=== PATIENT | female | born 1970 | race Caucasian/White ===

== ENCOUNTER 2017-09-18 14:26 | Inpatient (IN) | payer OTHER ==
--- NOTE | 2017-09-18 14:33 | PDOC ---
Rapid Medical Evaluation Chief Complaint: Facial Droop Time Seen by Provider: 09/18/17 14:31 Medical Evaluation: Allergies Allergy/AdvReac Type Severity Reaction Status Date / Time No Known Allergies Allergy Verified 09/18/17 14:31 09/18/17 14:34 46 year old female with no PMH, no meds ambulatory to the ED with her daughter complaining of right-sided facial paralysis, right tongue "heaviness", and right arm numbness since 10am. Alert & oriented Responsive Normal visual bridges by confrontation Complete right facial hemiparesis, including eyebrow Normal motor strength in arms and legs No limb ataxia Decreased sensation right side of face and arm. No dysarthria No extinction/inattention NIHSS 4 Code Johnson Activated 14:35 Patient accompanied to [facility] 14:37
[2017-09-18 14:45] VITALS: BMI 33.6
[2017-09-18] MEDS ORDERED: SODIUM CHLORIDE 1,000 ML IV SCH (14:45)
--- NOTE | 2017-09-18 14:53 | PDOC ---
Attending Attestation - HPI HPI: 09/18/17 16:45 Pt is a 46 yo F with no PMHx who presents to the ED with R sided facial droop and R sided weakness. Patient's last known well at 10 PM last night. Patient reports pain in the back of her head and neck radiating to the right ear. Accompanied by daughter who presents to the ED for further evaluation. Patient denies any recent infections. PCP: None Code Banks Activated 14:35 Patient accompanied to [facility] 14:37 Neurology-- Dr. Flores contacted at 15:03 - Physicial Exam PE: 09/18/17 16:45 GENERAL: Awake, alert, and fully oriented, in no acute distress HEAD: No signs of trauma EYES: PERRLA, EOMI, sclera anicteric, conjunctiva clear ENT: Auricles normal inspection, hearing grossly normal, nares patent, oropharynx clear without exudates. Moist mucosa NECK: Normal ROM, supple, no lymphadenopathy, JVD, or masses LUNGS: Breath sounds equal, clear to auscultation bilaterally. No wheezes, and no crackles HEART: Regular rate and rhythm, normal S1 and S2, no murmurs, rubs or gallops ABDOMEN: Soft, nontender, normoactive bowel sounds. No guarding, no rebound. No masses EXTREMITIES: Normal range of motion, no edema. No clubbing or cyanosis. No cords, erythema, or tenderness NEUROLOGICAL: Cranial nerves II through XII grossly intact. Normal speech, normal gait. + L facial droop. +Decrease sensation to the right face arm and leg. SKIN: Warm, Dry, normal turgor, no rashes or lesions noted. - Critical Care Time Total Critical Care Time: 30 Critical Care Statement: The care of this patient involved high complexity decision making to prevent further life threatening deterioration of the patient 's condition and/or to evaluate & treat vital organ system(s) failure or risk of failure. - Medical Decision Making 09/18/17 16:45 Documentation prepared by Maura Stack, acting as medical videographer for Zamzam Lange DO <Maura Stack - Last Filed: 09/18/17 16:49> - Resident Resident Name: Rodney Ramirez - ED Attending Attestation I have performed the following: I have examined & evaluated the patient, The case was reviewed & discussed with the resident, I agree w/resident's findings & plan, Exceptions are as noted - Critical Care Time Total Critical Care Time: 30 Critical Care Statement: The care of this patient involved high complexity decision making to prevent further life threatening deterioration of the patient 's condition and/or to evaluate & treat vital organ system(s) failure or risk of failure. - Medical Decision Making 09/18/17 14:52 I, Dr. Zamzam Lange, DO, attest that this document has been prepared under my direction and personally reviewed by me in its entirety. I further attest, that it accurately reflects all work, treatment, procedures and medical decision -making performed by me. 09/18/17 16:51 a/p: 46yo called code banks from triage secondary to L facial droop -onset 10am -last seen normal 10a -arrived in ED at 3p, out of window for TPA -also with bells palsy -will obtain labs -discussed neuro findings with dr. flores who will see patient in consult recommends head ct will give valtrex and prednisone will keep in obs 09/18/17 17:17 pt with bells palsy but abnl neuro exam will keep in obs pending MRI microblog sent to IM <Zamzam Lange - Last Filed: 09/18/17 17:17>
[2017-09-18] MEDS ORDERED: predniSONE 20 MG TABLET (UD) PO ONE (15:10)
[2017-09-18] MEDS ORDERED: valACYclovir HCL 1000 MG TABLET PO ONE (15:10)
--- NOTE | 2017-09-18 15:17 | PDOC ---
History of Present Illness - General Chief Complaint: Facial Droop Stated Complaint: PAIN IN RIGHT OF FACE Time Seen by Provider: 09/18/17 14:31 History Source: Patient Exam Limitations: No Limitations - History of Present Illness Initial Comments: 09/18/17 15:08 Patient is a 46F with no significant medical history here today complaining right sided facial weakness starting at 10am. Patient reports some pain in the back of her head radiating to the right ear. She denies chest pain, shortness of breath, abdominal pain, nausea, vomiting, dizziness. She states that she's been able to walk normally. She is also complaining of decreased sensation on the right side, worse in the lower extremities. This started with the facial weakness. Meds: None PMH: None PSH: . All: NKDA SHx: Denies smoking alcohol and illicits Past History - Past Medical History Allergies/Adverse Reactions: Allergies Allergy/AdvReac Type Severity Reaction Status Date / Time No Known Allergies Allergy Verified 09/18/17 14:31 Home Medications: Ambulatory Orders NK [No Known Home Medication] 09/18/17 COPD: No Other medical history: denies. - Suicide/Smoking/Psychosocial Hx Smoking History: Never smoked Review of Systems - Review of Systems Comments:: 09/18/17 15:23 GENERAL/CONSTITUTIONAL: No fever or chills. HEAD, EYES, EARS, NOSE AND THROAT: No change in vision. Pain in right ear CARDIOVASCULAR: No chest pain or shortness of breath RESPIRATORY: No cough, wheezing, or hemoptysis. GASTROINTESTINAL: No nausea, vomiting, diarrhea or constipation. GENITOURINARY: No dysuria, frequency, or change in urination. MUSCULOSKELETAL: Positive for neck pain. Negative for back pain. SKIN: No rash NEUROLOGIC: Positive for headache. No loss of consciousness. Decreased sensation in right side. ENDOCRINE: No increased thirst. No abnormal weight change HEMATOLOGIC/LYMPHATIC: No anemia, easy bleeding, or history of blood clots. ALLERGIC/IMMUNOLOGIC: No hives or skin allergy. *Physical Exam - Vital Signs Last Vital Signs Temp Pulse Resp BP Pulse Ox 97.9 F 83 19 130/85 97 09/18/17 14:32 09/18/17 14:32 09/18/17 14:32 09/18/17 14:32 09/18/17 14:32 - Physical Exam Comments: 09/18/17 15:24 GENERAL: Awake, alert, and fully oriented, in no acute distress NEUROLOGICAL: Right sided facial droop with involvement of forehead and eyebrow. Normal speech, decreased sensation in right extremities, lower more than upper. HEAD: No signs of trauma, normocephalic, atraumatic EYES: PERRLA, EOMI, sclera anicteric, conjunctiva clear ENT: Auricles normal inspection, hearing grossly normal, nares patent, oropharynx clear without exudates. Moist mucosa LUNGS: No distress, speaks full sentences, clear to auscultation bilaterally HEART: Regular rate and rhythm, normal S1 and S2, no murmurs, rubs or gallops, peripheral pulses normal and equal bilaterally. ABDOMEN: Soft, nontender, normoactive bowel sounds. No guarding, no rebound. No masses EXTREMITIES: Normal inspection, Normal range of motion, no edema. No clubbing or cyanosis. SKIN: Warm, Dry, normal turgor, no rashes or lesions noted. NIH Stroke Scale - Initial Evaluation Level of consciousness: Alert Ask patient the month and their age: Answers both correctly Ask patient to open & close eyes; make fist and let go: Obeys both correctly Best gaze (horizontal eye movement): Normal Visual field testing: No visual field loss Facial paresis (Show teeth/raise eyebrows/close eyes tight): Complete paralysis of one or both sides (Upper and lower face) Motor Function: Left Arm: Normal Motor Function: Right Arm: Normal (extends arm 90 (or 45) degrees for 10 seconds without drift Motor Function: Left Leg: Normal (extends leg 30 degrees for 5 seconds without drift) Motor Function: Right Leg: Normal (extends leg 30 degrees for 5 seconds without drift) Limb Ataxia: No ataxia Sensory(Use pinprick test arms,legs,trunk,face/side to side): Severe to total sensory loss Best language (Describe picture, name items, read sentences): Mild to moderate aphasia Dysarthria (read several words): Normal articulation Extinction and Inattention: No abnormality - Total Score NIH Stroke Scale Score: 6 Critical Care Time/MDM Note - Medical Decision Making Note: 09/18/17 15:26 46F with no pmh here today with right sided facial droop. Vital signs stable. Outside of time window for tPA. Exam also not consistent with typical stroke. 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 However, patient has normal motor strength in all four extremities. Due to this , patient is not a candidate for endovascular approach. Neuro consulted, rec MRI for further evaluation in addition to labs, ekg, cxr. Patient went from RME to CT during initial evaluation. CT shows no hemorrhage, no evidence of acute stroke. Labs drawn and sent. 09/18/17 17:40 Laboratory Tests 09/18/17 09/18/17 09/18/17 15:33 15:33 15:33 WBC 6.8 Hgb 15.7 H Hct 46.5 H Plt Count 209 INR 0.95 Sodium 135 L BUN 14 Creatinine 0.4 L Random Glucose 325 H* Triglycerides 468 H Cholesterol 302 H Total LDL Cholesterol 202 H CBC normal. CMP shows elevated glucose to 325. Kidney function normal. Labs show HLD. EKG shows normal sinus rhythm, normal rate, no st elevations/depressions. Normal QTc/IL intervals. CXR pending. Patient remains stable, will admit to obs for MRI and further observation. 09/18/17 18:[address] Mehta, patient will be admitted to obs stroke floor. Discharge Disposition - Diagnosis TIA (transient ischemic attack) - Discharge Dispostion Condition at time of disposition: Stable Admit: Yes - Referrals - Patient Instructions - Post Discharge Activity
[2017-09-18] MEDS ORDERED: METOCLOPRAMIDE HCL INJECTION 10 MG/2 ML VIAL IVPUSH ONE (15:18)
[2017-09-18] MEDS ORDERED: diphenhydrAMINE HCL 25 MG CAPSULE (FP) PO ONE ×2 (15:18→15:34)
[2017-09-18] MEDS ORDERED: predniSONE 20 MG TABLET (UD) ONE (15:33)
[2017-09-18] MEDS ORDERED: METOCLOPRAMIDE HCL INJECTION 10 MG/2 ML VIAL ONE (15:33)
[2017-09-18 15:54] LABS: URINE APPEARANCE CLEAR; URINE BILIRUBIN NEGATIVE (NEGATIVE); URINE BLOOD 3+ (NEGATIVE); URINE COLOR YELLOW; URINE GLUCOSE (UA) NEGATIVE (NEGATIVE); URINE KETONE TRACE (NEGATIVE); URINE LEUK ESTERASE NEGATIVE (NEGATIVE); URINE NITRITE NEGATIVE (NEGATIVE); URINE PROTEIN NEGATIVE (NEGATIVE); URINE UROBILINOGEN NEGATIVE mg/dL (0.2-1.0)
[2017-09-18 15:56] LABS: BASO % 0.2 % (0-2.0); EOS % 2.3 % (0-4.5); MCH 27.5 pg (25.7-33.7); MCHC 33.8 g/dl (32.0-36.0); MEAN CELL VOLUME 81.4 fl (80-96); MEAN PLT VOLUME 9.7 fl (7.5-11.1); NEUT % 68.1 % (42.8-82.8); PLATELET COUNT 209 K/MM3 (134-434); RDW 12.9 % (11.6-15.6); WHITE BLOOD COUNT 6.8 K/mm3 (4.0-10.0)
[2017-09-18 16:12] LABS: INR 0.95 (0.82-1.09); PROTHROMBIN TIME (PATIENT) 10.7 SEC (9.98-11.88)
[2017-09-18 16:21] LABS: ALBUMIN 3.6 g/dl (3.4-5.0); ANION GAP 9 (8-16); BILIRUBIN,TOTAL 0.4 mg/dL (0.2-1.0); CALCIUM 8.2 mg/dL (8.5-10.1); CHOLESTEROL 302 mg/dL (50-200); CO2 26 mmol/L (21-32); CREATININE 0.4 mg/dL (0.55-1.02); SGOT/AST 15 U/L (15-37); SGPT/ALT 23 U/L (12-78); TOT PROT 7.7 g/dl (6.4-8.2)
[2017-09-18 16:22] LABS: ALK PHOS 167 U/L (45-117); CPK 65 IU/L (26-192); TROPONIN I < 0.02 ng/ml (0.00-0.05)
[2017-09-18 17:03] LABS: GLUCOSE,RANDOM 325 mg/dL (74-106)
[2017-09-18 17:56] LABS: URINE BACTERIA RARE /hpf (NONE SEEN); URINE MUCUS RARE; URINE RBC 6 /hpf (0-3); URINE WBC 1 /hpf (3-5)
[2017-09-18] MEDS: SODIUM CHLORIDE 1,000 ML IV SCH (19:15)
--- NOTE | 2017-09-18 20:20 | PN ---
Teaching Attending Note Name of Resident: Bleu Reeder ATTENDING PHYSICIAN STATEMENT I saw and evaluated the patient. I reviewed the resident's note and discussed the case with the resident. I agree with the resident's findings and plan as documented. SUBJECTIVE: 46 yo F with no pmhx who presents with right sided facial weakness. Weakness started at 10 am. Also with associated pain in back of head. States she also has loss of sensation in lower extremities. States she had a URI over a week ago , which has now resolved. No chest pain, pressure or shortness of breath. No n/v /d. States she also feels weak with her right extremities too. OBJECTIVE: Physical: VS: Vital Signs Period Temp Pulse Resp BP Sys/Ochoa Pulse Ox Last 24 Hr 97.9 F 77-83 18-19 118-130/70-85 97-100 GEN: NAD, resting in bed, able to speak full sentences, AA0X3 HEENT: NCAT, PERRL, Throat without erythema or exudates CARD: RRR S1, S2 RESP: CTAB ABD: BSx4, NTD to palpation EXT: - C/C/E CBCD WBC 6.8 K/mm3 (4.0-10.0) 09/18/17 15:33 RBC 5.71 M/mm3 (3.60-5.2) H 09/18/17 15:33 Hgb 15.7 GM/dL (10.7-15.3) H 09/18/17 15:33 Hct 46.5 % (32.4-45.2) H 09/18/17 15:33 MCV 81.4 fl (80-96) 09/18/17 15:33 MCHC 33.8 g/dl (32.0-36.0) 09/18/17 15:33 RDW 12.9 % (11.6-15.6) 09/18/17 15:33 Plt Count 209 K/MM3 (134-434) 09/18/17 15:33 MPV 9.7 fl (7.5-11.1) 09/18/17 15:33 CMP Sodium 135 mmol/L (136-145) L 09/18/17 15:33 Potassium 4.0 mmol/L (3.5-5.1) 09/18/17 15:33 Chloride 100 mmol/L (98-107) 09/18/17 15:33 Carbon Dioxide 26 mmol/L (21-32) 09/18/17 15:33 Anion Gap 9 (8-16) 09/18/17 15:33 BUN 14 mg/dL (7-18) 09/18/17 15:33 Creatinine 0.4 mg/dL (0.55-1.02) L 09/18/17 15:33 Creat Clearance w eGFR > 60 (>60) 09/18/17 15:33 Random Glucose 325 mg/dL (74-106) H* 09/18/17 15:33 Calcium 8.2 mg/dL (8.5-10.1) L 09/18/17 15:33 Total Bilirubin 0.4 mg/dL (0.2-1.0) 09/18/17 15:33 AST 15 U/L (15-37) 09/18/17 15:33 ALT 23 U/L (12-78) 09/18/17 15:33 Alkaline Phosphatase 167 U/L (45-117) H 09/18/17 15:33 Total Protein 7.7 g/dl (6.4-8.2) 09/18/17 15:33 Albumin 3.6 g/dl (3.4-5.0) 09/18/17 15:33 CARDIAC ENZYMES Creatine Kinase 65 IU/L (26-192) 09/18/17 15:33 Troponin I < 0.02 ng/ml (0.00-0.05) 09/18/17 15:33 CXR- Negative for acute process. CT HEAD- No acute intercranial hemmorage, mass effect or midline shift/ hydrocephalus No acute infrarction MRI BRAIN- Pending ASSESSMENT AND PLAN: 46 yo F with no pmhx who presents with right sided facial weakness, being admitted for CVA/TIA rule out 1.) Right Sided Weakness- RO CVA/TIA - FU MRI Brain - Lipid Panel/A1C, TSH - Neuro Consult - ASA, Statin - Echo/Carotid US - NPO - Speech and Swallow - PT Eval 2.) Hyperglycemia - Possible DM - HgBA1c - FS - RAISS 3.) Dvt Ppx - SCDs Place in OBS Stroke-TELE
[2017-09-18 20:44] LABS: URINE LEUK ESTERASE Negative (NEGATIVE)
--- NOTE | 2017-09-18 21:50 | HP ---
CHIEF COMPLAINT: Right facial drop PCP:does not have PCP HISTORY OF PRESENT ILLNESS: 46 year old Portuguese speaking female with no PMH presented to the hospital today due to right facial drop with right side weakness. Symptoms started in 10 am when she noticed swelling in her right face with right eye lacrimation, followed by right facial drop, she could not held the food in her mouth. She reports right side neck pain and pulsating headache that last 2 hours associated with blurry vision. Patient is mobile by her self, but she still feel the weakness on the right side. She reports recent cold 2 weeks ago. But denies any recent dental visit (last dental work 1 year ago). She denies any chest pain , sob, palpitation , she denies any abdominal pain , N /V/D/C. She denies any urinary symptoms. ER course was notable for: (1)Prednisone 60 mg once , Valcycovir 1000 mg po once (2) EKG NSR (3) GLU 325, hyperlipidemia TG 365, Cholesterol 302, LDL 202, HDL 59 Recent Travel: NO PAST MEDICAL HISTORY: denies PAST SURGICAL HISTORY: , 20 years ago Social History: Smoking:denies Alcohol:denies Drugs: denies Family History: Allergies No Known Allergies Allergy (Verified 09/18/17 14:31) HOME MEDICATIONS: Home Medications Medication Instructions Recorded NK [No Known Home Medication] 09/18/17 REVIEW OF SYSTEMS CONSTITUTIONAL: Absent: fever, chills, diaphoresis, generalized weakness, malaise, loss of appetite, weight change HEENT: Absent: rhinorrhea, nasal congestion, throat pain, throat swelling, difficulty swallowing, mouth swelling, ear pain, eye pain, visual changes CARDIOVASCULAR: Absent: chest pain, syncope, palpitations, irregular heart rate, lightheadedness , peripheral edema RESPIRATORY: Absent: cough, shortness of breath, dyspnea with exertion, orthopnea, wheezing, stridor, hemoptysis GASTROINTESTINAL: Absent: abdominal pain, abdominal distension, nausea, vomiting, diarrhea, constipation, melena, hematochezia GENITOURINARY: Absent: dysuria, frequency, urgency, hesitancy, hematuria, flank pain, genital pain MUSCULOSKELETAL: Absent: myalgia, arthralgia, joint swelling, back pain, neck pain SKIN: Absent: rash, itching, pallor HEMATOLOGIC/IMMUNOLOGIC: Absent: easy bleeding, easy bruising, lymphadenopathy, frequent infections ENDOCRINE: Absent: unexplained weight gain, unexplained weight loss, heat intolerance, cold intolerance NEUROLOGIC: Absent: headache, focal weakness or paresthesias, dizziness, unsteady gait, seizure, mental status changes, bladder or bowel incontinence PSYCHIATRIC: Absent: anxiety, depression, suicidal or homicidal ideation, hallucinations. PHYSICAL EXAMINATION Vital Signs - 24 hr 09/18/17 09/18/17 09/18/17 14:32 15:53 15:55 Temperature 97.9 F Pulse Rate 83 Pulse Rate [ 77 Apical] Respiratory 19 18 Rate Blood Pressure 130/85 Blood Pressure 118/70 [Right Arm] O2 Sat by Pulse 97 99 99 Oximetry (%) 09/18/17 15:58 Temperature Pulse Rate Pulse Rate [ Apical] Respiratory Rate Blood Pressure Blood Pressure [Right Arm] O2 Sat by Pulse 100 Oximetry (%) GENERAL: Awake, alert, and fully oriented, in mild distress. HEAD: Normal with no signs of trauma. EYES: Pupils equal, round and reactive to light, right eyelid drop , sclera anicteric, conjunctiva clear. EARS, NOSE, THROAT: Moist mucous membranes. NECK: Normal range of motion, supple without lymphadenopathy, JVD, LUNGS: Breath sounds equal, clear to auscultation bilaterally. No wheezes, and no crackles. No accessory muscle use. HEART: Regular rate and rhythm, normal S1 and S2 without murmur, rub or gallop. ABDOMEN: Soft, nontender, not distended, normoactive bowel sounds, no guarding, no rebound, no masses. MUSCULOSKELETAL: Normal range of motion at all joints. No bony deformities or tenderness. UPPER EXTREMITIES: 2+ pulses, warm, well-perfused. No cyanosis. strength 4/5 on right , 5/5 on left. sensation decreased on right side. LOWER EXTREMITIES: 2+ pulses, warm, well-perfused. No calf tenderness. No peripheral edema. trength 4/5 on right , 5/5 on left. sensation decreased on right side. NEUROLOGICAL: right facial drop, right side strength 4/5, with decreased sensation, Normal speech. Normal gait. PSYCHIATRIC: Cooperative. Good eye contact. Appropriate mood and affect. SKIN: Warm, dry, normal turgor, no rashes or lesions noted, Laboratory Results - last 24 hr 09/18/17 09/18/17 09/18/17 15:05 15:33 15:33 WBC 6.8 RBC 5.71 H Hgb 15.7 H Hct 46.5 H MCV 81.4 MCH 27.5 MCHC 33.8 RDW 12.9 Plt Count 209 MPV 9.7 Neutrophils % 68.1 Lymphocytes % 23.5 Monocytes % 5.9 Eosinophils % 2.3 Basophils % 0.2 PT with INR 10.70 INR 0.95 Blood Type O POSITIVE Antibody Screen Negative 09/18/17 09/18/17 15:33 15:33 WBC RBC Hgb Hct MCV MCH MCHC RDW Plt Count MPV Neutrophils % Lymphocytes % Monocytes % Eosinophils % Basophils % PT with INR INR Sodium 135 L Potassium 4.0 Chloride 100 Carbon Dioxide 26 Anion Gap 9 BUN 14 Creatinine 0.4 L Creat Clearance w eGFR > 60 Random Glucose 325 H* Calcium 8.2 L Total Bilirubin 0.4 AST 15 ALT 23 Alkaline Phosphatase 167 H Creatine Kinase 65 Troponin I < 0.02 Total Protein 7.7 Albumin 3.6 Triglycerides 468 H Cholesterol 302 H Total LDL Cholesterol 202 H HDL Cholesterol 59 Urine Color Yellow Urine Appearance Clear Urine pH 5.0 Ur Specific [place] 1.026 Urine Protein Negative Urine Glucose (UA) Negative Urine Ketones Trace H Urine Blood 3+ H Urine Nitrite Negative Urine Bilirubin Negative Urine Urobilinogen Negative Ur Leukocyte Esterase Negative Urine WBC (Auto) 1 Urine RBC (Auto) 6 Ur Epithelial Cells Rare Urine Bacteria Rare Urine Mucus Rare Blood Type Antibody Screen CBC, BMP 09/18/17 15:33 09/18/17 15:33 09/18/2017Head Ct w/o contrast 1. No acute intracranial hemorrhage, mass effects, midline shift or hydrocephalus. 2. No compelling evidence of acute transcortical infarction at this time. 09/18/2017 MRI is pending 09/18/2017 Carotid doppler is negative 09/18/2017 shows no acute pathology ASSESSMENT/PLAN: 46 year old speaking female presented to ED with right facial drop, and right side numbness, was admitted to Rule out CVA/TIA # RIght facial drop with Right side weakness * barbour palsy vs TIA/CVA * MRI pending * CT negative * carotid doller negative * Echo cardio gram * Neuro consult * ASA/Statin * Prednisone 60 mg PO once daily for 7 days * Valacycolvir 1000 mg PO BID * NPO * Speech and swallow * PT * Lipid panel * Hgb A1c * TSH * * # Hyper glycemia * GLU 325 on admission * ISS * FS * BGM q 4h # Hyperlipidemia * started on statin , held due to NPO * low cholesterol diet * monitor # FEN/Proph * F : on no fluids * E: Monitor in AM * N: NPO * GI: no need * DVT : SCDs both legs * # Despo * admit to stroke tele observation Visit type - Emergency Visit Emergency Visit: Yes ED Registration Date: 09/18/17 Care time: The patient presented to the Emergency Department on the above date and was hospitalized for further evaluation of their emergent condition. - New Patient This patient is new to me today: Yes Date on this admission: 09/20/17 - Critical Care Critical Care patient: No
[2017-09-18] MEDS ORDERED: ATORVASTATIN CA 40 MG TABLET (FP) PO SCH (22:00)
[2017-09-18] MEDS ORDERED: INSULIN SLIDING SCALE (NOVOLOG) 1 VIAL SQ SCH (22:00)
--- NOTE | 2017-09-18 22:09 | MSN ---
Admitting History and Physical - Admission Chief Complaint: "right face paralysis" History of Present Illness: Terri Harmon is a 46yo female with no past medical hx who presents to the ED with right sided facial droop, right LE, right UE weakness and right sided neck pain which started this 10am this morning. Patient stated symptoms began with lacrimation on the right and then noted the right side of her face was numb, feels paralyzed, slightly swollen and painful. The swelling and pain has resolved. Patient noted right sided pulsating headache which lasted approximate 2 hours in the past few days which is managed with advil and sleep. Patient is able to ambulate but feels as though her right side is weaker. Patient also complains of blurry/ double vision and noticed that food kept falling out of her mouth when she tries to eat. Patient noted URI 2 weeks ago which has resolved. Patient denies hearing loss, tinnitus, fever, chills, nausea, vomitting, dysphagia. ER course was notable for: - Valtrex 1000mg PO. Prednisone 60mg PO. 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 History of Recent Travel: No Home Medications - Allergies Allergies/Adverse Reactions: Allergies Allergy/AdvReac Type Severity Reaction Status Date / Time No Known Allergies Allergy Verified 09/18/17 14:31 - Home Medications Home Medications: Ambulatory Orders NK [No Known Home Medication] 09/18/17 Family Disease History - Family Disease History Family Disease History: Diabetes: Father (renal insufficiency), Mother ([place] at age 28), Sister (breast cancer and uterine cancer), Other: Father Review of Systems - Review of Systems Constitutional: reports: Weakness (right sided wekaness on face, UE, LE) Eyes: reports: Blurred Vision, Double Vision, Photophobia HENT: reports: Throat Pain (sore throat starting in the morning) Neck: reports: Tenderness (right side of the neck) Cardiovascular: reports: No Symptoms Respiratory: reports: No Symptoms Gastrointestinal: reports: No Symptoms Genitourinary: reports: No Symptoms Breasts: reports: No Symptoms Reported Integumentary: reports: No Symptoms Neurological: reports: Numbness (right face, UE, LE diminished sensation.), Weakness (right side weaker than left) Physical Examination Vital Signs: Vital Signs Temperature 97.9 F 09/18/17 14:32 Pulse Rate 77 09/18/17 15:55 Respiratory Rate 18 09/18/17 15:55 Blood Pressure 118/70 09/18/17 15:55 O2 Sat by Pulse Oximetry (%) 100 09/18/17 15:58 Constitutional: Yes: Well Nourished, No Distress, Calm Eyes: Yes: EOM Intact, Diplopia, PERRL, Ptosis (right side) HENT: Yes: WNL, Atraumatic, Normocephalic Neck: Yes: WNL, Supple, Trachea Midline Cardiovascular: Yes: WNL, Regular Rate and Rhythm, S1, S2 Respiratory: Yes: WNL, Regular, CTA Bilaterally Gastrointestinal: Yes: WNL, Normal Bowel Sounds, Soft Edema: No Peripheral Pulses WNL: Yes Peripheral Pulses: Left Radial: 2+, Right Radial: 2+, Left Doralis Pedis: 2+, Right Dorsalis Pedis: 2+ Neurological: Yes: WNL, Alert, Oriented, Facial Droop (right side), Numbness ( right side face, UE, LE), Other (CN VII diminished on the right side. Patient unable to raise eye brows, puff up cheeks, smile on the right side.) ...Motor Strength: LUE (5/5), LLE (5/5), RUE (4/5), RLE (4/5) Psychiatric: Yes: WNL Labs: CBC, BMP 09/18/17 15:33 09/18/17 15:33 Laboratory Last Values WBC 6.8 K/mm3 (4.0-10.0) 09/18/17 15:33 RBC 5.71 M/mm3 (3.60-5.2) H 09/18/17 15:33 Hgb 15.7 GM/dL (10.7-15.3) H 09/18/17 15:33 Hct 46.5 % (32.4-45.2) H 09/18/17 15:33 MCV 81.4 fl (80-96) 09/18/17 15:33 MCH 27.5 pg (25.7-33.7) 09/18/17 15:33 MCHC 33.8 g/dl (32.0-36.0) 09/18/17 15:33 RDW 12.9 % (11.6-15.6) 09/18/17 15:33 Plt Count 209 K/MM3 (134-434) 09/18/17 15:33 MPV 9.7 fl (7.5-11.1) 09/18/17 15:33 Neutrophils % 68.1 % (42.8-82.8) 09/18/17 15:33 Lymphocytes % 23.5 % (8-40) 09/18/17 15:33 Monocytes % 5.9 % (3.8-10.2) 09/18/17 15:33 Eosinophils % 2.3 % (0-4.5) 09/18/17 15:33 Basophils % 0.2 % (0-2.0) 09/18/17 15:33 PT with INR 10.70 SEC (9.98-11.88) 09/18/17 15:33 INR 0.95 (0.82-1.09) 09/18/17 15:33 Sodium 135 mmol/L (136-145) L 09/18/17 15:33 Potassium 4.0 mmol/L (3.5-5.1) 09/18/17 15:33 Chloride 100 mmol/L (98-107) 09/18/17 15:33 Carbon Dioxide 26 mmol/L (21-32) 09/18/17 15:33 Anion Gap 9 (8-16) 09/18/17 15:33 BUN 14 mg/dL (7-18) 09/18/17 15:33 Creatinine 0.4 mg/dL (0.55-1.02) L 09/18/17 15:33 Creat Clearance w eGFR > 60 (>60) 09/18/17 15:33 Random Glucose 325 mg/dL (74-106) H* 09/18/17 15:33 Calcium 8.2 mg/dL (8.5-10.1) L 09/18/17 15:33 Total Bilirubin 0.4 mg/dL (0.2-1.0) 09/18/17 15:33 AST 15 U/L (15-37) 09/18/17 15:33 ALT 23 U/L (12-78) 09/18/17 15:33 Alkaline Phosphatase 167 U/L (45-117) H 09/18/17 15:33 Creatine Kinase 65 IU/L (26-192) 09/18/17 15:33 Troponin I < 0.02 ng/ml (0.00-0.05) 09/18/17 15:33 Total Protein 7.7 g/dl (6.4-8.2) 09/18/17 15:33 Albumin 3.6 g/dl (3.4-5.0) 09/18/17 15:33 Triglycerides 468 mg/dL (35-160) H 09/18/17 15:33 Cholesterol 302 mg/dL (50-200) H 09/18/17 15:33 Total LDL Cholesterol 202 mg/dL (5-100) H 09/18/17 15:33 HDL Cholesterol 59 mg/dL (40-60) 09/18/17 15:33 Urine Color Yellow 09/18/17 15:33 Urine Appearance Clear 09/18/17 15:33 Urine pH 5.0 (5.0-8.0) 09/18/17 15:33 Ur Specific [place] 1.026 (1.001-1.035) 09/18/17 15:33 Urine Protein Negative (NEGATIVE) 09/18/17 15:33 Urine Glucose (UA) Negative (NEGATIVE) 09/18/17 15:33 Urine Ketones Trace (NEGATIVE) H 09/18/17 15:33 Urine Blood 3+ (NEGATIVE) H 09/18/17 15:33 Urine Nitrite Negative (NEGATIVE) 09/18/17 15:33 Urine Bilirubin Negative (NEGATIVE) 09/18/17 15:33 Urine Urobilinogen Negative mg/dL (0.2-1.0) 09/18/17 15:33 Ur Leukocyte Esterase Negative (NEGATIVE) 09/18/17 15:33 Urine WBC (Auto) 1 /hpf (3-5) 09/18/17 15:33 Urine RBC (Auto) 6 /hpf (0-3) 09/18/17 15:33 Ur Epithelial Cells Rare /HPF (FEW) 09/18/17 15:33 Urine Bacteria Rare /hpf (NONE SEEN) 09/18/17 15:33 Urine Mucus Rare 09/18/17 15:33 Blood Type O POSITIVE 09/18/17 15:05 Antibody Screen Negative 09/18/17 15:05 Imaging - Results Chest X-ray: Report Reviewed (no evidence of acute disease), Image Reviewed Cat Scan: Report Reviewed, Image Reviewed (negative) MRI: Image Reviewed EKG: Image Reviewed (normal) Other: Report Reviewed (carotid has no signs of stenosis), Image Reviewed ( Carotid Doppler: no signs of stenosis.) Assessment/Plan Assessment: 46 yo F with no PMHx presents with right sided facial weakness possibly due to TIA/ CVA. Plan: # right sided weakness. Rule out CVA/ TIA - Brain MRI: pending interpretation - neuro consult - ASA, statin 40 mg PO HS LATA - echo/ carotid US - NPO - speech/ swallow eval - PT evaluation # hyperglycemia - pending HgbA1C - insulin sliding scale #FEN - fluid: NS 1,000 mls @ 83 mls/hr IV ASDIR LATA - electrolytes: no abnormalities - nutrition: NPO, pending speech/ swallow evaluation #DVT prophylaxis - SCDs dispo: patient on telemetry to monitor for possible TIA/CVA
[2017-09-19] MEDS: INSULIN SLIDING SCALE (NOVOLOG) 1 VIAL SQ SCH ×6 (00:03→21:52)
[2017-09-19] MEDS ORDERED: HEPARIN NA (PORCINE) 5,000 UNITS/ML 1ML VIAL SQ SCH (06:00)
[2017-09-19 07:52] LABS: MCHC 32.9 g/dl (32.0-36.0); MEAN CELL VOLUME 81.9 fl (80-96); MEAN PLT VOLUME 9.3 fl (7.5-11.1); PLATELET COUNT 197 K/MM3 (134-434); RDW 13.3 % (11.6-15.6)
[2017-09-19 08:37] LABS: ALK PHOS 122 U/L (45-117); ANION GAP 9 (8-16); BILIRUBIN,TOTAL 0.4 mg/dL (0.2-1.0); CALCIUM 8.2 mg/dL (8.5-10.1); CO2 26 mmol/L (21-32); CREATININE 0.3 mg/dL (0.55-1.02); GLUCOSE,RANDOM 217 mg/dL (74-106); MAGNESIUM 2.1 mg/dL (1.8-2.4); PHOSPHOROUS 3.6 mg/dL (2.5-4.9); SGOT/AST 9 U/L (15-37); SGPT/ALT 18 U/L (12-78); THYROID STIMULATING HORMONE 0.41 uIU/ml (0.358-3.74); TOT PROT 6.5 g/dl (6.4-8.2)
--- NOTE | 2017-09-19 08:57 | CON.NEURO ---
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 History of Recent Travel: No Home Medications - Allergies Allergies/Adverse Reactions: Allergies Allergy/AdvReac Type Severity Reaction Status Date / Time No Known Allergies Allergy Verified 09/18/17 14:31 - Home Medications Home Medications: Ambulatory Orders NK [No Known Home Medication] 09/18/17 Family Disease History - Family Disease History Family Disease History: Diabetes: Father (renal insufficiency), Mother ([place] at age 28), Sister (breast cancer and uterine cancer), Other: Father Physical Exam-Neuro Vital Signs: Vital Signs Temperature 98.9 F 09/19/17 07:45 Pulse Rate 73 09/19/17 07:45 Respiratory Rate 16 09/19/17 07:45 Blood Pressure 128/68 09/19/17 07:45 O2 Sat by Pulse Oximetry (%) 99 09/18/17 22:21 Labs: CBC, BMP 09/19/17 05:25 09/19/17 05:25 INR, PTT INR 0.95 (0.82-1.09) 09/18/17 15:33 Assessment/Plan cc left sided facial droopiness HPI 46 year old female , came with left sided facial droopiness. She has no significant prior history. Patient has LMN type left facial droppiness. Since she complained of right sided diminished sensation( arm face and leg) , thougth to be stroke. CT HEAD AND MRI OF BRAIN IS NORML. She denies any diplopia, dysphagia or weakness, no seizure, fever or cancr. SH,FH,ROS reviewed in chrt NKDA HOME MEDICATIONS: Home Medications Medication Instructions Recorded NK [No Known Home Medication] 09/18/17 Neurological Examination Alert follow command, able to engage in normal conversation, able to provide her age and name of hospital. Left sided LMN facial palsy, eomi and pupils reactive no motor weakness Right arm , face and leg sensory diminished CT HEAD and MRI of brain is normal Assessment- 1. [place] palsy, suggest to give her prednisone and course of Valtrex 2. Righ sided sensory subjective sensation( face, arm and leg), seems to be subjective and mri of brain is normal, unlikely to be stroke Patient cand be discharged from neuro point of view, Swallowing was tested at bedside with 3 ounce of water she did good, she can be given food. Thank you so much Silverio Combs md
[2017-09-19] MEDS: ASPIRIN 81 MG CHEWABLE TABLETS PO SCH (09:35)
[2017-09-19] MEDS: valACYclovir HCL 500 MG TABLET (FP) PO SCH ×2 (09:35→21:42)
[2017-09-19] MEDS: predniSONE 20 MG TABLET (UD) PO SCH (09:35)
--- NOTE | 2017-09-19 11:12 | CONSULT ---
Admitting History and Physical - Primary Care Physician PCP: Tom Louis - Admission History of Present Illness: Per EMR: 46 year old Polish speaking female with no PMH presented to the hospital today due to right facial drop with right side weakness. Symptoms started in 10 am when she noticed swelling in her right face with right eye lacrimation, followed by right facial drop, she could not held the food in her mouth. She reports right side neck pain and pulsating headache that last 2 hours associated with blurry vision. Patient is mobile by her self, but she still feel the weakness on the right side. She reports recent cold 2 weeks ago. But denies any recent dental visit (last dental work 1 year ago). 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 History of Recent Travel: No History - Admission Reason For Visit: TRANSIENT CEREBRAL ISCHEMIA - Diagnostics X-ray: Report Reviewed CT Scan: Report Reviewed MRI: Report Reviewed ((-)) - General Mental Status: Alert and Oriented, Awake and Alert, Able to Follow Commands Attention: Intact Ability to Follow Directions: Excellent Head/Neck Control: WFL - Hearing Hearing: Normal Hearing Aide: No With Patient: No Speech Evaluation - Communication Primary Language: [place] Communication: Yes: Within Normal Limits Oral Expression Ability: Yes: No Impairment - Speech Production Able to Make Needs Known: Yes: WNL Intelligibility: Yes: WNL - Speech Characteristics Voice Loudness: Normal Voice Pitch: Yes: Normal Voice Phonatory-based Quality: Yes: Normal Speech Pattern: Normal Speech Clarity: < 100% Nasal Resonance: Normal Articulation: Yes: Precise (slight imprecision) Rate of Speech: Intact - Language/Auditory Comprehension Follows: Yes: 2 Stage Simple Commands - Language/Verbal Expression Able to Respond to Simple Queries: Yes: WNL Able to Communicate Wants and Needs: Yes: WNL Functional Communication Status: Yes: WNL Attention: Yes: Intact - Memory/Perception residential Memory: Yes: WNL Short Term Memory: Yes: WNL - Swallow Evaluation/Bedside Assessment Current Nutritional Intake: Regular, Thin Liquids Dentition: Yes: Adequate Facial Symmetry at Rest: Facial Droop Left (at rest and slight weakness in left eye closure.) Facial Symmetry on Retraction: Facial Droop Left (able to retract but weak.) Against Resistance Opening: Normal Against Resistance Closing: Normal Pucker Lips: Droops Left Smile: Droops Left Lingual Movement: Symmetric Lingual Speed of Movement: Normal Lingual Movement Strgth Against Opposition: Normal Lingual Movement Characteristics: Normal Velopharyngeal Movement: Normal Laryngeal Elevation: WFL Laryngeal Movement: Able to Palpate Labial Seal: Impaired Left (drools while drinking.) Chewing: WFL Oral Prep Time: WFL A-P Transit: WFL Pocketing: None Timing of Swallow: WFL Coughing/Throat Clear: No Change in Voice: No Recommendations - Speech Evaluation, Impression/Plan Impression: Left facial/eye closure weakness. Left Burton's Palsy.Pt c/o right UE weakness? MRI (-). Drools while drinking sec to weak left bilabial closue.. - Dysphagia Impressions/Plan Swallowing Skills: WFL Dysphagia Impressions: No Impairment *Silent aspiration: cannot be R/O at bedside Recommendations: Other (Pt educated on oromotor exercises to improve left facial /eye function. She was advised to use a straw while drinking until facial strength improves.)
--- NOTE | 2017-09-19 11:42 | EKG ---
Test Reason : Blood Pressure : / mmHG Vent. Rate : 079 BPM Atrial Rate : 079 BPM P-R Int : 162 ms QRS Dur : 084 ms QT Int : 396 ms P-R-T Axes : 041 041 011 degrees QTc Int : 454 ms NORMAL SINUS RHYTHM NORMAL ECG NO PREVIOUS ECGS AVAILABLE Confirmed by ADA CORNEJO, HERMINIA ([id number]) on 09/19/2017 11:41:52 AM Referred By: Confirmed By:HERMINIA CABALLERO MD
[2017-09-19] MEDS ORDERED: metFORMIN HCL 500 MG TABLET (FP) PO ONE (17:03)
[2017-09-19] MEDS: SODIUM CHLORIDE 1,000 ML IV SCH (17:26)
--- NOTE | 2017-09-19 18:13 | PN ---
Teaching Attending Note Name of Resident: Vidhi Rodriguez ATTENDING PHYSICIAN STATEMENT Time of evaluation: 10:50 AM I saw and evaluated the patient. I reviewed the resident's note and discussed the case with the resident. I agree with the resident's findings and plan as documented. SUBJECTIVE: Patient seen and examined. facial symptoms unchanged with some eye tearing, no new eye pain or discharge. Still reports decreased sensation on right side, no other complaints. OBJECTIVE: Vital Signs Period Temp Pulse Resp BP Sys/Ochoa Pulse Ox Last 24 Hr 98.1 F-99.0 F 73-91 16-18 120-135/68-81 97-99 Intake & Output 09/16/17 09/17/17 09/18/17 09/19/17 23:59 23:59 23:59 23:59 Intake Total 1430 Balance 1430 Weight 184 lb General: lying in bed in no acute distress HEENT: right facial droop, right eyelid lag, decrease sensation right face Neuro AAOx3, right facial droop, decreased sensation entire right side, right face/RUE/RLE, power 5/5, no pronator drift, non focal exam otherwise Home Medication List Medication Instructions Recorded Confirmed Type NK [No Known Home Medication] 09/18/17 09/18/17 History Active Medications Generic Name Dose Route Start Last Admin Trade Name Freq PRN Reason Stop Dose Admin Artificial Tears 2 drop 09/19/17 22:00 Artificial Tears OU QID LATA Aspirin 81 mg 09/19/17 10:00 09/19/17 09:35 Asa - PO 81 mg DAILY LATA Administration Atorvastatin Calcium 40 mg 09/19/17 22:00 Lipitor - PO HS LATA Insulin Aspart 1 vial 09/19/17 22:00 Novolog Vial Sliding Scale - SQ ACHS [facility] Protocol Metformin HCl 500 mg 09/20/17 07:00 Glucophage - PO BID@0700,1630 LATA Prednisone 60 mg 09/19/17 10:00 09/19/17 09:35 Deltasone - PO 60 mg DAILY LATA Administration Valacyclovir HCl 1,000 mg 09/19/17 10:00 09/19/17 09:35 Valtrex - PO 1,000 mg BID LATA Administration Laboratory Results - last 24 hr 09/18/17 09/18/17 09/18/17 15:33 21:45 22:50 WBC RBC Hgb Hct MCV MCH MCHC RDW Plt Count MPV Sodium Potassium Chloride Carbon Dioxide Anion Gap BUN Creatinine Creat Clearance w eGFR POC Glucometer 302 Random Glucose Hemoglobin A1c % 12.1 H Calcium Phosphorus Magnesium Total Bilirubin AST ALT Alkaline Phosphatase Total Protein Albumin TSH Ur Leukocyte Esterase Negative 09/19/17 09/19/17 09/19/17 04:36 05:25 05:25 WBC 7.0 RBC 5.35 H Hgb 14.4 Hct 43.8 MCV 81.9 MCH 27.0 MCHC 32.9 RDW 13.3 Plt Count 197 MPV 9.3 Sodium 140 Potassium 3.7 Chloride 105 Carbon Dioxide 26 Anion Gap 9 BUN 14 Creatinine 0.3 L D Creat Clearance w eGFR > 60 POC Glucometer 216 Random Glucose 217 H D Hemoglobin A1c % Calcium 8.2 L Phosphorus 3.6 Magnesium 2.1 Total Bilirubin 0.4 AST 9 L D ALT 18 D Alkaline Phosphatase 122 H D Total Protein 6.5 Albumin 3.0 L TSH 0.41 Ur Leukocyte Esterase 09/19/17 09/19/17 09/19/17 08:04 12:12 15:42 WBC RBC Hgb Hct MCV MCH MCHC RDW Plt Count MPV Sodium Potassium Chloride Carbon Dioxide Anion Gap BUN Creatinine Creat Clearance w eGFR POC Glucometer 205 233 391 Random Glucose Hemoglobin A1c % Calcium Phosphorus Magnesium Total Bilirubin AST ALT Alkaline Phosphatase Total Protein Albumin TSH Ur Leukocyte Esterase MRI brain noted ASSESSMENT AND PLAN: 46 yof with no PMHx with barbour's palsy and new onset DM -barbour's palsy -new onset Dm Plan: Prednisone/Valtrex for 1 week. Eye care, artifical tears. A1c noted, new onset diabetic. Discussed with patient. Start metformin, Social work consult for glucometer, medication assistance. Diabetic education. Endocrine input Dr. Galloway. d/c in 24 hours pending social work/endocrine input and improvement in blood sugars. Plan discussed with patient in detail, all questions answered.
--- NOTE | 2017-09-19 19:21 | CONSULT ---
Consult Consult Specialty:: Endocrinology Referred by:: Dr Louis Reason for Consultation:: New onset DM - History of Present Illness Chief Complaint: Weakness left side of face History of Present Illness: This is a 46 yo F with h/o HLD, on no meds who presented with left sided facial weakness which started at 10 am yesterday while she was in the store whichshe attributed to the cold. . Also c/o tingling of both upper extremities Rt more than left. Pt found to be hyperglycemic and referred for management. Family h/o DM in father. On further questioning pt gives h/o polyuria, polydipsia and nocturia for about 3 years which she attributes to her drinking a lot of water. Wt loss of about 50 lbs in about a year which she attributes to her eating healthier. Last labs done about a year ago which showed high cholesterol but normal sugar as per pt. Denies any visual symptoms except for needing reading glasses. 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 History of Recent Travel: No Home Medications - Allergies Allergies/Adverse Reactions: Allergies Allergy/AdvReac Type Severity Reaction Status Date / Time No Known Allergies Allergy Verified 09/18/17 14:31 - Home Medications Home Medications: Ambulatory Orders NK [No Known Home Medication] 09/18/17 Family Disease History - Family Disease History Family Disease History: Diabetes: Father (renal insufficiency), Mother ([place] at age 28), Sister (breast cancer and uterine cancer), Other: Father Review of Systems - Review of Systems Constitutional: reports: Malaise Eyes: reports: Other (unable close left eye) HENT: reports: No Symptoms Neck: reports: No Symptoms Cardiovascular: reports: No Symptoms Respiratory: reports: No Symptoms Gastrointestinal: reports: No Symptoms Genitourinary: reports: No Symptoms Musculoskeletal: reports: No Symptoms Neurological: reports: Other (pulling of angle of mouth to right LMN VIII N Palsy) Endocrine: reports: No Symptoms Physical Exam Vital Signs: Vital Signs Temperature 98.7 F 09/19/17 14:42 Pulse Rate 91 H 09/19/17 14:42 Respiratory Rate 16 09/19/17 14:42 Blood Pressure 135/81 09/19/17 14:42 O2 Sat by Pulse Oximetry (%) 97 09/19/17 09:00 Constitutional: Yes: No Distress Eyes: Yes: Conjunctiva Clear, EOM Intact HENT: Yes: Atraumatic, Normocephalic Neck: Yes: Supple, Trachea Midline Cardiovascular: Yes: Regular Rate and Rhythm Respiratory: Yes: Regular, CTA Bilaterally Gastrointestinal: Yes: Normal Bowel Sounds, Soft Musculoskeletal: Yes: WNL Extremities: Yes: WNL Edema: No Neurological: Yes: Other (LMN left facial palsy) Labs: CBC, BMP 09/19/17 05:25 09/19/17 05:25 Assessment/Plan AP: DM: A1c 12.1 [place] palsy Left sided Diet exercise discussed Nutrition consult BGM Q ACHS Novolog SS coverage Teach pt to self inject Insulin and self monitor blood sugar May need to take Insulin at home while she is on steroids' Agree with starting Metformin Will f/u
[2017-09-19] MEDS ORDERED: PT OWN MED DRAWER 7, Y5N ONE (20:48)
[2017-09-19] MEDS: ATORVASTATIN CA 40 MG TABLET (FP) PO SCH (21:42)
--- NOTE | 2017-09-19 21:44 | PN ---
Physical Exam: SUBJECTIVE: Patient seen and examined. Pt has no complaints, still reports decreased sensation over entire Right side of body. No fever, chills. No events overnight. OBJECTIVE: Vital Signs Period Temp Pulse Resp BP Sys/Ochoa Pulse Ox Last 24 Hr 98.1 F-99.0 F 73-94 16-18 120-147/68-87 97-99 GENERAL: The patient is awake, alert, in no acute distress. HEENT: PERRLA, EOMi, sclera anicteric, conjunctiva clear. +Right sided facial droop with Right lid lag. Oropharynx clear without exudates, uvula midline, moist mucous membranes. LUNGS: Breath sounds equal, clear to auscultation bilaterally, no wheezes, no crackles, no accessory muscle use. HEART: Regular rate and rhythm, S1, S2 without murmur, rub or gallop. ABDOMEN: Soft, nontender, nondistended. EXTREMITIES: Warm, well-perfused, no edema. NEUROLOGICAL: Decreased sensation to Right side (face/UE/LE). Muscle strength 5 /5 throughout. Normal speech, gait not observed. PSYCH: Normal mood, normal affect. SKIN: Warm, dry, normal turgor, no rashes or lesions noted Laboratory Results - last 24 hr 09/18/17 09/18/17 09/19/17 21:45 22:50 04:36 WBC RBC Hgb Hct MCV MCH MCHC RDW Plt Count MPV Sodium Potassium Chloride Carbon Dioxide Anion Gap BUN Creatinine Creat Clearance w eGFR POC Glucometer 302 216 Random Glucose Hemoglobin A1c % 12.1 H Calcium Phosphorus Magnesium Total Bilirubin AST ALT Alkaline Phosphatase Total Protein Albumin TSH 09/19/17 09/19/17 09/19/17 05:25 05:25 08:04 WBC 7.0 RBC 5.35 H Hgb 14.4 Hct 43.8 MCV 81.9 MCH 27.0 MCHC 32.9 RDW 13.3 Plt Count 197 MPV 9.3 Sodium 140 Potassium 3.7 Chloride 105 Carbon Dioxide 26 Anion Gap 9 BUN 14 Creatinine 0.3 L D Creat Clearance w eGFR > 60 POC Glucometer 205 Random Glucose 217 H D Hemoglobin A1c % Calcium 8.2 L Phosphorus 3.6 Magnesium 2.1 Total Bilirubin 0.4 AST 9 L D ALT 18 D Alkaline Phosphatase 122 H D Total Protein 6.5 Albumin 3.0 L TSH 0.41 09/19/17 09/19/17 12:12 15:42 WBC RBC Hgb Hct MCV MCH MCHC RDW Plt Count MPV Sodium Potassium Chloride Carbon Dioxide Anion Gap BUN Creatinine Creat Clearance w eGFR POC Glucometer 233 391 Random Glucose Hemoglobin A1c % Calcium Phosphorus Magnesium Total Bilirubin AST ALT Alkaline Phosphatase Total Protein Albumin TSH Active Medications Generic Name Dose Route Start Last Admin Trade Name Agustinq PRN Reason Stop Dose Admin Artificial Tears 2 drop 09/19/17 22:00 Artificial Tears OU QID LATA Aspirin 81 mg 09/19/17 10:00 09/19/17 09:35 Asa - PO 81 mg DAILY LATA Administration Atorvastatin Calcium 40 mg 09/19/17 22:00 Lipitor - PO HS LATA Insulin Aspart 1 vial 09/19/17 22:00 Novolog Vial Sliding Scale - SQ ACHS [facility] Protocol Metformin HCl 500 mg 09/20/17 07:00 Glucophage - PO BID@0700,1630 LATA Prednisone 60 mg 09/19/17 10:00 09/19/17 09:35 Deltasone - PO 60 mg DAILY LATA Administration Valacyclovir HCl 1,000 mg 09/19/17 10:00 09/19/17 09:35 Valtrex - PO 1,000 mg BID LATA Administration IMAGIN09/18/[address] -> no acute intracranial hemorrhage, mass effects, midline shift, or hydrocephalus. No acute transcortical infarction. 09/18/17 CXR -> no acute lung disease 09/18/17 Brain MRI -> no enhancing lesions, edema, active ischemic changes, hemorrhage or demyelinating process. 09/18/17 Carotid Doppler -> no evidence of high-grade carotid artery stenosis 09/19/17 Echo -> Left ventricle normal in size, function, thickness, and EF. ASSESSMENT/PLAN: 46yo F with no significant PMH presents with Right facial droop and Right sided numbness, admitted for CVA/TIA work-up. 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 Combs) recs appreciated: Prednisone and Valtrex. Unlikely to be a stroke given normal Brain MRI. - pt passed bedside swallow test -> diet upgraded # newly diagnosed DM - Endo (Dr. kAhtar) recs appreciated: Metformin. Teach pt to self inject insulin, self monitor blood sugar, and about diet and exercise. - Dietary Consult - BGMs - Novolog SSI - hgba1c 12.1 # hld - continue Lipitor # FEN - Fluids: po - Electrolytes: wnl, continue to monitor - Nutrition: diabetic diet # Prophylaxis - DVT ppx with faith SCDs - deconditioning ppx with PT Visit type - Emergency Visit Emergency Visit: Yes ED Registration Date: 09/18/17 Care time: The patient presented to the Emergency Department on the above date and was hospitalized for further evaluation of their emergent condition. - New Patient This patient is new to me today: Yes Date on this admission: 09/19/17 - Critical Care Critical Care patient: No
[2017-09-19] MEDS: ARTIFICIAL TEARS (POLYVINYL ALCOHOL 1.4%) OPTH DROPS OU SCH (21:47)
[2017-09-20] MEDS ORDERED: PT OWN MED DRAWER 7, Y5N ONE ×3 (06:04→09:29)
[2017-09-20] MEDS: INSULIN SLIDING SCALE (NOVOLOG) 1 VIAL SQ SCH ×4 (06:31→21:19)
[2017-09-20] MEDS: metFORMIN HCL 500 MG TABLET (FP) PO SCH ×2 (06:32→18:46)
[2017-09-20 07:12] LABS: ANION GAP 11 (8-16); CALCIUM 8.2 mg/dL (8.5-10.1); CO2 25 mmol/L (21-32); CREATININE 0.3 mg/dL (0.55-1.02); GLUCOSE,RANDOM 261 mg/dL (74-106)
[2017-09-20] MEDS ORDERED: POTASSIUM CHLORIDE TABS 20 MEQ TABLET.ER (FP) PO ONE (09:00)
[2017-09-20] MEDS: ASPIRIN 81 MG CHEWABLE TABLETS PO SCH (09:47)
[2017-09-20] MEDS: predniSONE 20 MG TABLET (UD) PO SCH (09:47)
[2017-09-20] MEDS: valACYclovir HCL 500 MG TABLET (FP) PO SCH ×2 (09:48→21:27)
[2017-09-20] MEDS: ARTIFICIAL TEARS (POLYVINYL ALCOHOL 1.4%) OPTH DROPS OU SCH ×4 (09:50→21:20)
--- NOTE | 2017-09-20 12:42 | PN ---
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 Facial weakness without improvement. Oral Motor exercises encouraged.Use of straw for liquids. Selected Entries 09/19/17 09/19/17 09/19/17 02:08 06:00 07:45 Breakfast Supper Temperature 98.5 F 98.1 F 98.9 F 09/19/17 09/19/17 09/19/17 11:00 14:42 18:00 Breakfast Supper Temperature 99.0 F 98.7 F 98.5 F 09/19/17 09/20/17 09/20/17 19:47 01:00 12:26 Breakfast 100% Supper 75% Temperature 98.4 F
[2017-09-20] MEDS ORDERED: INSULIN (NOVOLOG) ASPART 100 UNITS/ML 10ML VIAL ONE (13:41)
--- NOTE | 2017-09-20 14:04 | PN ---
Teaching Attending Note Name of Resident: Vidhi Rodriguez ATTENDING PHYSICIAN STATEMENT Time of evaluation: 11;35 AM I saw and evaluated the patient. I reviewed the resident's note and discussed the case with the resident. I agree with the resident's findings and plan as documented. SUBJECTIVE: Patient seen and examined. Unable to close left eye, no new complaints. OBJECTIVE: Vital Signs Period Temp Pulse Resp BP Sys/Ochoa Pulse Ox Last 24 Hr 98.4 F-98.7 F 91-95 16-18 135-147/80-87 100 Intake & Output 09/17/17 09/18/17 09/19/17 09/20/17 23:59 23:59 23:59 23:59 Intake Total 1440 450 Balance 1440 450 Weight 184 lb General: lying in bed in no acute distress HEENT: left facial droop, Inability to close left eye fully Abdomen: soft, obese, NT Active Medications Generic Name Dose Route Start Last Admin Trade Name Freq PRN Reason Stop Dose Admin Artificial Tears 2 drop 09/19/17 22:00 09/20/17 13:09 Artificial Tears OU Not Given QID LATA Aspirin 81 mg 09/19/17 10:00 09/20/17 09:47 Asa - PO 81 mg DAILY LATA Administration Atorvastatin Calcium 40 mg 09/19/17 22:00 09/19/17 21:42 Lipitor - PO 40 mg HS LATA Administration Insulin Aspart 1 vial 09/19/17 22:00 09/20/17 13:41 Novolog Vial Sliding Scale - SQ 10 units ACHS LATA Administration Protocol Metformin HCl 500 mg 09/20/17 07:00 09/20/17 06:32 Glucophage - PO 500 mg BID@0700,1630 LATA Administration Prednisone 60 mg 09/19/17 10:00 09/20/17 09:47 Deltasone - PO 60 mg DAILY LATA Administration Valacyclovir HCl 1,000 mg 09/19/17 10:00 09/20/17 09:48 Valtrex - PO 1,000 mg BID LATA Administration Laboratory Results - last 24 hr 09/19/17 09/19/17 09/20/17 15:42 21:47 05:05 Sodium 139 Potassium 3.4 L Chloride 103 Carbon Dioxide 25 Anion Gap 11 BUN 17 D Creatinine 0.3 L POC Glucometer 391 271 Random Glucose 261 H D Calcium 8.2 L 09/20/17 05:58 Sodium Potassium Chloride Carbon Dioxide Anion Gap BUN Creatinine POC Glucometer 254 Random Glucose Calcium ASSESSMENT AND PLAN: 46 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 Eye care, artifical tears. A1c noted, new onset diabetic. Discussed with patient. Endocrine input noted, metforin 850 mg BID. Social work input for medication assistance/glucometer. Diabetic education/Blood sugar checks teaching provided. d/c home today with medications/glucometer. Clinic appointment arranged for 1:30 PM tomorrow. Plan discussed with patient in detail, all questions answered.
--- NOTE | 2017-09-20 19:38 | PN ---
Physical Exam: SUBJECTIVE: Patient seen and examined. Pt unable to close Left eye. No fever, chills. No events overnight. Upon reassessment later in the day, pt c/p suprapubic pain and burning sensation on urination. OBJECTIVE: Vital Signs Period Temp Pulse Resp BP Sys/Ochoa Pulse Ox Last 24 Hr 98.4 F-98.7 F 88-95 18-18 131-135/77-80 100-100 GENERAL: The patient is awake, alert, in no acute distress. HEENT: +Right facial droop LUNGS: Breath sounds equal, clear to auscultation bilaterally, no wheezes, no crackles, no accessory muscle use. HEART: Regular rate and rhythm, S1, S2 without murmur, rub or gallop. ABDOMEN: Mild diffuse tenderness to palpation, (+) bowel sounds x 4. (-) CVA tenderness. EXTREMITIES: Warm, well-perfused, no edema. PSYCH: Normal mood, normal affect. SKIN: Warm, dry, normal turgor, no rashes or lesions noted Laboratory Results - last 24 hr 09/19/17 09/20/17 09/20/17 21:47 05:05 05:58 Sodium 139 Potassium 3.4 L Chloride 103 Carbon Dioxide 25 Anion Gap 11 BUN 17 D Creatinine 0.3 L POC Glucometer 271 254 Random Glucose 261 H D Calcium 8.2 L 09/20/17 17:48 Sodium Potassium Chloride Carbon Dioxide Anion Gap BUN Creatinine POC Glucometer 287 Random Glucose Calcium Active Medications Generic Name Dose Route Start Last Admin Trade Name Freq PRN Reason Stop Dose Admin Artificial Tears 2 drop 09/19/17 22:00 09/20/17 18:46 Artificial Tears OU 2 drop QID LATA Administration Aspirin 81 mg 09/19/17 10:00 09/20/17 09:47 Asa - PO 81 mg DAILY LATA Administration Atorvastatin Calcium 40 mg 09/19/17 22:00 09/19/17 21:42 Lipitor - PO 40 mg HS LATA Administration Insulin Aspart 1 vial 09/19/17 22:00 09/20/17 18:46 Novolog Vial Sliding Scale - SQ 6 units ACHS LATA Administration Protocol Metformin HCl 500 mg 09/20/17 07:00 09/20/17 18:46 Glucophage - PO 500 mg BID@0700,1630 LATA Administration Prednisone 60 mg 09/19/17 10:00 09/20/17 09:47 Deltasone - PO 60 mg DAILY LATA Administration Valacyclovir HCl 1,000 mg 09/19/17 10:00 09/20/17 09:48 Valtrex - PO 1,000 mg BID LATA Administration ASSESSMENT/PLAN: 46yo F with no significant PMH presents with Right facial droop and Right sided numbness, admitted for CVA/TIA work-up. 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 - Family and pt educated about self monitoring of blood sugar, and about diet and exercise. - BGMs - Novolog SSI # hld - continue Lipitor # FEN - Fluids: po - Electrolytes: wnl, continue to monitor - Nutrition: diabetic diet # Prophylaxis - DVT ppx with faith SCDs - deconditioning ppx with PT Visit type - Emergency Visit Emergency Visit: Yes ED Registration Date: 09/20/17 Care time: The patient presented to the Emergency Department on the above date and was hospitalized for further evaluation of their emergent condition. - New Patient This patient is new to me today: No - Critical Care Critical Care patient: No
[2017-09-20] MEDS: ATORVASTATIN CA 40 MG TABLET (FP) PO SCH (21:17)
[2017-09-20 21:29] VITALS: TEMP 98.5
[2017-09-21 00:59] LABS: URINE APPEARANCE CLEAR; URINE BILIRUBIN NEGATIVE (NEGATIVE); URINE BLOOD NEGATIVE (NEGATIVE); URINE COLOR LTYELLOW; URINE GLUCOSE (UA) 3+ (NEGATIVE); URINE KETONE 1+ (NEGATIVE); URINE LEUK ESTERASE NEGATIVE (NEGATIVE); URINE NITRITE NEGATIVE (NEGATIVE); URINE PROTEIN NEGATIVE (NEGATIVE); URINE UROBILINOGEN NEGATIVE mg/dL (0.2-1.0)
[2017-09-21 02:42] VITALS: PULSE 65
[2017-09-21] MEDS: metFORMIN HCL 500 MG TABLET (FP) PO SCH (06:36)
[2017-09-21] MEDS: INSULIN SLIDING SCALE (NOVOLOG) 1 VIAL SQ SCH (06:36)
[2017-09-21 06:40] VITALS: BP 141/80
--- NOTE | 2017-09-21 07:40 | PN ---
Teaching Attending Note Name of Resident: Vidhi Rodriguez ATTENDING PHYSICIAN STATEMENT I saw and evaluated the patient. I reviewed the resident's note and discussed the case with the resident. I agree with the resident's findings and plan as documented. SUBJECTIVE: Patient seen and examined, no complaints. uneventful overnight. OBJECTIVE: Vital Signs Period Temp Pulse Resp BP Sys/Ochoa Pulse Ox Last 24 Hr 98.5 F-98.7 F 65-91 18-18 127-141/77-80 100-100 Intake & Output 09/18/17 09/19/17 09/20/17 09/21/17 23:59 23:59 23:59 23:59 Intake Total 1440 850 Balance 1440 850 Weight 184 lb General: lying in bed in no acute distress HEENT: left facial droop with eyelid lag unchanged Abdomen: soft, NT, ND, positive bowel sounds, no CVA tenderness Extremities: no edema Active Medications Generic Name Dose Route Start Last Admin Trade Name Freq PRN Reason Stop Dose Admin Artificial Tears 2 drop 09/19/17 22:00 09/20/17 21:20 Artificial Tears OU 2 drop QID LATA Administration Aspirin 81 mg 09/19/17 10:00 09/20/17 09:47 Asa - PO 81 mg DAILY LATA Administration Atorvastatin Calcium 40 mg 09/19/17 22:00 09/20/17 21:17 Lipitor - PO 40 mg HS LATA Administration Insulin Aspart 1 vial 09/19/17 22:00 09/21/17 06:36 Novolog Vial Sliding Scale - SQ 4 units ACHS LATA Administration Protocol Metformin HCl 500 mg 09/20/17 07:00 09/21/17 06:36 Glucophage - PO 500 mg BID@0700,1630 LATA Administration Prednisone 60 mg 09/19/17 10:00 09/20/17 09:47 Deltasone - PO 60 mg DAILY LATA Administration Valacyclovir HCl 1,000 mg 09/19/17 10:00 09/20/17 21:27 Valtrex - PO 1,000 mg BID LATA Administration Laboratory Results - last 24 hr 09/20/17 09/20/17 09/20/17 05:05 17:48 21:16 Sodium 139 Potassium 3.4 L Chloride 103 Carbon Dioxide 25 Anion Gap 11 BUN 17 D Creatinine 0.3 L POC Glucometer 287 251 Random Glucose 261 H D Calcium 8.2 L Urine Color Urine Appearance Urine pH Ur Specific [place] Urine Protein Urine Glucose (UA) Urine Ketones Urine Blood Urine Nitrite Urine Bilirubin Urine Urobilinogen 09/21/17 09/21/17 00:00 05:43 Sodium Potassium Chloride Carbon Dioxide Anion Gap BUN Creatinine POC Glucometer 212 Random Glucose Calcium Urine Color L[place]ellow Urine Appearance Clear Urine pH 5.0 Ur Specific [place] 1.032 Urine Protein Negative Urine Glucose (UA) 3+ H Urine Ketones 1+ H Urine Blood Negative Urine Nitrite Negative Urine Bilirubin Negative Urine Urobilinogen Negative ASSESSMENT AND PLAN: 46 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 Eye care, artifical tears. A1c noted, new onset diabetic. Discussed with patient. Endocrine input noted, metforin 850 mg BID. Social work input for medication assistance/glucometer. Diabetic education/Blood sugar checks teaching provided. d/c home today with medications/glucometer. Clinic appointment arranged for 1:30 PM today. All teaching has been provided. patient diaphoretic last night with one episode of low grade fever and dysuria. d/c held. No further fevers, urinalysis neg, asymptomatic overnight. Improved earlier than expect. D.c home today, has clinic appointment later today patient to keep. Plan discussed with patient in detail, all questions answered.
[2017-09-21 08:43] LABS: ANION GAP 11 (8-16); CALCIUM 8.8 mg/dL (8.5-10.1); CO2 27 mmol/L (21-32); CREATININE 0.3 mg/dL (0.55-1.02); GLUCOSE,RANDOM 235 mg/dL (74-106)
[2017-09-21] MEDS ORDERED: PT OWN MED DRAWER 7, Y5N ONE (08:47)
[2017-09-21] MEDS: ASPIRIN 81 MG CHEWABLE TABLETS PO SCH (09:06)
[2017-09-21] MEDS: predniSONE 20 MG TABLET (UD) PO SCH (09:06)
[2017-09-21] MEDS: valACYclovir HCL 500 MG TABLET (FP) PO SCH (09:07)
[2017-09-21] MEDS: ARTIFICIAL TEARS (POLYVINYL ALCOHOL 1.4%) OPTH DROPS OU SCH (09:09)
[2017-09-21 11:18] LABS: URINE LEUK ESTERASE Negative (NEGATIVE)
--- NOTE | 2017-09-22 07:34 | DS ---
Physical Exam: SUBJECTIVE: Patient seen and examined. Pt has no complaints. Pt feels ready to go home. No events overnight. OBJECTIVE: Vital Signs Period Temp Pulse Resp BP Sys/Ochoa Pulse Ox Last 24 Hr 100 PHYSICAL EXAM GENERAL: The patient is awake, alert, in no acute distress. HEENT: +Right facial droop LUNGS: Breath sounds equal, clear to auscultation bilaterally, no wheezes, no crackles, no accessory muscle use. HEART: Regular rate and rhythm, S1, S2 without murmur, rub or gallop. ABDOMEN: Mild diffuse tenderness to palpation, normoactive bowel sounds. EXTREMITIES: Warm, well-perfused, no edema. PSYCH: Normal mood, normal affect. SKIN: Warm, dry, normal turgor, no rashes or lesions noted LABS Laboratory Results - last 24 hr 09/21/17 09/21/17 00:00 05:05 Sodium 136 Potassium 3.5 Chloride 98 Carbon Dioxide 27 Anion Gap 11 BUN 16 Creatinine 0.3 L Random Glucose 235 H Calcium 8.8 Ur Leukocyte Esterase Negative HOSPITAL COURSE: Date of Admission:09/20/17 Date of Discharge: 09/22/17 46yo F with no significant PMH presents with Right facial droop and Right sided numbness, admitted for CVA/TIA work-up. Pt started on and sent home with Prednisone and Valtrex to treat Burton's Palsy. Pt diagnosed with diabetes during this admission and started on Metformin. Pt and pt's family educated about self monitoring of blood sugar and diet. Pt diagnosed with hypercholesterolemia during this admission and started on Lipitor. Prior to discharge on 09/21/17, pt became diaphoretic with one episode of low grade fever and dysuria. Pt kept one day more. No further fevers, urinalysis (-), and pt asymptomatic overnight. 09/18/[address] -> no acute intracranial hemorrhage, mass effects, midline shift or hydrocephalus. No acute transcortical infarction. F/u MRI recommended. 09/18/17 Head MRI -> no enhancing lesions, edema, acute ischemic changes, hemorrhage or demyelinating process. 09/18/17 CXR -> no acute lung disease. 09/18/17 Carotid Doppler -> no high grade carotid artery stenosis. 09/19/17 Echo -> Left ventricle size, thickness, function and EF are normal. Pt walked 150 ft with PT on 09/20/17. Pt stable for discharge home. Minutes to complete discharge: 35 Discharge Summary Reason For Visit: TRANSIENT CEREBRAL ISCHEMIA Condition: Stable - Instructions Diet, Activity, Other Instructions: You are being treated for Burton's Palsy. You were also diagnosed with Diabetes and high cholesterol during this hospitalization. You have some new medications to take regularly. - For the Burton's palsy continue taking your Prednisone once daily for 4 more days and your Valtrex twice daily for 4 more days. Also, apply eye care lubricant and wear an eye mask as needed for your Left eye. Apply artificial tears as directed. Avoid left eye getting dry. - For your Diabetes continue taking your Metformin twice daily. Notify your doctor if any new diarrhea noted on metformin. Maintain adequate hydration while on this medication. -Also, you will need to check your blood sugar (and keep a log of the values) everyday. Please check your blood sugar before meals and at bedtime and notify your doctor if < 70 or persistently > 140 or any reading > 350 noted. - For your high cholesterol continue taking your Lipitor daily. Notify your doctor if any new muscle aches or pains, jaundice, belly pain or new concerns. Drink plenty of fluids. Please continue a diabetic diet and resume physical activity as tolerated. Avoid driving or operating heavy machinery for now. Please follow up with an Environmental Lawyer (Dr. Valverde's contact information is attached), and bring your log of blood glucose values. Please schedule an appointment at our Resident Clinic (Dr. Lowe's contact information is attached), to follow up with a Primary Care Physician. You have been scheduled with the resident clinic first appointment tomorrow at 1:30 PM. Please return to the hospital immediately if you experience persistent or increased headache, chest pain, difficulty breathing, or for any medical emergency. Referrals: Agustin Lowe MD [Staff Physician] - 09/21/17 1:30 pm Ana Lilia Akhtar MD [Staff Physician] - 1 Week Disposition: HOME - Home Medications Comprehensive Discharge Medication List: Ambulatory Orders Aspirin [ASA -] 81 mg PO DAILY tab.chew 09/20/17 Atorvastatin Ca [Lipitor] 40 mg PO HS #30 tablet 09/20/17 Dextran 70/Hypromellose [Artificials Tears Drops] 30 ml OP PRN PRN #30 ml Eye Patch 1 each MC DAILY PRN #1 each 09/20/17 Metformin HCl 850 mg PO BID #60 tablet 09/20/17 Prednisone [Deltasone -] 60 mg PO DAILY #12 tablet 09/20/17 Valacyclovir HCl [Valtrex -] 1,000 mg PO BID #8 tablet 09/20/17 This patient is new to me today: No Emergency Visit: Yes ED Registration Date: 09/20/17 Care time: The patient presented to the Emergency Department on the above date and was hospitalized for further evaluation of their emergent condition. Critical Care patient: No - Discharge Referral Referred to [facility] Med P.C.: No
== END 2017-09-21 09:17 | disposition home or self-care (01) | DRG 48 ==
LOC: JER 14:26 → JERBED 18:07 → J4W 21:31 → OBSVTOIN 09-20 19:01
PROVIDERS: ADMIT Hospitalist; ATTEND Hospitalist
DX: G51.0 Bell's palsy (principal); E11.65 Type 2 diabetes mellitus with hyperglycemia; R29.706 NIHSS score 6; E78.5 Hyperlipidemia, unspecified; Z83.3 Family history of diabetes mellitus; Z80.3 Family history of malignant neoplasm of breast; E87.6 Hypokalemia
CPT/HCPCS: 36415; 70450-TC; 70553-TC; 71010-TC; 80048; 80053; 81003; 81015; 82465; 82550; 83036; 83718; 83721; 83735; 84100; 84443; 84478; 84484; 85025; 85027; 85610; 86850; 86900; 86901; 93005; 93010; 93306-TC; 93880-TC; 97116-GP; 97161-GP; 99285-25; A9576; G0378

== ENCOUNTER 2018-01-03 18:52 | Emergency (ER) | payer OTHER ==
[2018-01-03 19:39] VITALS: BP 124/88; PULSE 78; TEMP 98.7; BMI 32.9
--- NOTE | 2018-01-03 19:39 | PDOC ---
Rapid Medical Evaluation Chief Complaint: Bone Injury Medical Evaluation: Allergies Allergy/AdvReac Type Severity Reaction Status Date / Time No Known Allergies Allergy Verified 09/18/17 14:31 04 19:38 I have performed a brief in-person evaluation of this patient. The patient presents with a chief complaint of: ankle pain s/p fall on sunday Pertinent physical exam findings: swelling, tenderness, and ecchymosis to R ankle I have ordered the following: foot/ankle x-ray The patient will proceed to the ED for further evaluation. Discharge Disposition - Diagnosis Ankle pain, right - Referrals - Patient Instructions - Post Discharge Activity
--- NOTE | 2018-01-03 20:39 | PDOC ---
History of Present Illness - General Chief Complaint: Bone Injury Stated Complaint: FALL/INJURY Time Seen by Provider: 01/03/18 19:39 History Source: Patient, Cardiovascular Surgeon Used ([facility] #[id number]) Exam Limitations: No Limitations - History of Present Illness Initial Comments: 01/03/18 20:57 This is a 47-year-old woman with past medical history of hypertension, diabetes , hypothyroidism who presents to the emergency department with right ankle pain for one week. Patient states that on 12/27 she was walking and then slipped twisting her right ankle. Patient states she's been able to walk on her ankle for the past week this progressively become more swollen and painful. Patient stated that she believed the pain would resolve as she believes this was a sprain the pain has progressively gotten worse over the 7 days. Denies numbness or tingling to the foot and toes distal to injury. Past History - Past Medical History Allergies/Adverse Reactions: Allergies Allergy/AdvReac Type Severity Reaction Status Date / Time No Known Allergies Allergy Verified 01/03/18 19:39 Home Medications: Ambulatory Orders Aspirin [ASA -] 81 mg PO DAILY tab.chew 09/20/17 Atorvastatin Ca [Lipitor] 40 mg PO HS #30 tablet 09/20/17 Metformin HCl 850 mg PO BID #60 tablet 09/20/17 Glipizide 10 mg PO ASDIR 01/03/18 Anemia: No Asthma: No Cancer: No Cardiac Disorders: No CVA: No COPD: No CHF: No Dementia: No Diabetes: Yes GI Disorders: No Disorders: No HTN: No Hypercholesterolemia: No Liver Disease: No Seizures: No Thyroid Disease: No - Surgical History Abdominal Surgery: No Appendectomy: No Cardiac Surgery: No Cholecystectomy: No Lung Surgery: No Neurologic Surgery: No Orthopedic Surgery: No - Immunization History Immunization Up to Date: Yes - Suicide/Smoking/Psychosocial Hx Smoking History: Never smoked Have you smoked in the past 12 months: No Information on smoking cessation initiated: No Hx Alcohol Use: No Drug/Substance Use Hx: No Substance Use Type: None Hx Substance Use Treatment: No Review of Systems - Review of Systems Able to Perform ROS?: Yes Is the patient limited Ukrainian proficient: Yes Constitutional: No: Symptoms Reported HEENTM: No: Symptoms Reported Respiratory: No: Symptoms reported Cardiac (ROS): No: Symptoms Reported ABD/GI: No: Symptoms Reported : No: Symptoms Reported Musculoskeletal: Yes: See HPI Integumentary: No: Symptoms Reported Neurological: No: Symptoms reported Endocrine: No: Symptoms Reported Hematologic/Lymphatic: No: Symptoms Reported *Physical Exam - Vital Signs Last Vital Signs Temp Pulse Resp BP Pulse Ox 98.7 F 78 18 124/88 98 01/03/18 19:36 01/03/18 19:36 01/03/18 19:36 01/03/18 19:36 01/03/18 19:36 - Physical Exam General Appearance: Yes: Appropriately Dressed. No: Apparent Distress HEENT: positive: Normal ENT Inspection Neck: positive: Trachea midline, Supple Respiratory/Chest: positive: Lungs Clear, Normal Breath Sounds. negative: Respiratory Distress, Accessory Muscle Use Cardiovascular: positive: Regular Rhythm, Regular Rate. negative: Murmur Vascular Pulses: Dorsalis-Pedis (R): 2+, Doralis-Pedis (L): 2+ Gastrointestinal/Abdominal: positive: Normal Bowel Sounds, Soft. negative: Tender Musculoskeletal: positive: Normal Inspection. negative: CVA Tenderness Extremity: positive: Swelling (To the dorsum of the right foot and ankle) Integumentary: positive: Normal Color, Dry, Warm Neurologic: positive: Alert, Normal Response, Motor Strength 5/5 Medical Decision Making - Medical Decision Making 01/03/18 21:19 A/P: 47-year-old woman with history of hypertension, NIDDM, hypothyroidism who presents with 1 week of left ankle pain status post slip and fall Swelling to the dorsum of the right foot and to the medial and lateral malleolus Tenderness present over the medial malleolus 2+ DP pulses Full sensation and movement of toes Resolving ecchymosis noted to dorsum of right foot and base of toes X-rays X-ray of right ankle as read by me chip fracture noted to the distal medial malleolus Rajan wrap Aircast Crutches Orthopedic follow-up Discharge *DC/Admit/Observation/Transfer Diagnosis at time of Disposition: Ankle sprain Qualifiers: Encounter type: initial encounter Involved ligament of ankle: unspecified ligament Laterality: right Qualified Code(s): S93.401A - Sprain of unspecified ligament of right ankle, initial encounter - Discharge Dispostion Disposition: HOME Condition at time of disposition: Stable Admit: No - Referrals Referrals: Collin Bal MD [Staff Physician] - - Patient Instructions Printed Discharge Instructions: How to Use Crutches Additional Instructions: Apply ice to your ankle for 20 minutes at a time. After first 20 minutes she may remove for a minimum of 20 minutes before reapplying. Take Tylenol or Motrin as needed for pain. You have been given a number for orthopedist. Make an appointment for evaluation in 1 week if symptoms do not improve. Return to ER for worsening pain, numbness or tingling in the toes or any other concerns. Aplique hielo a levine tobillo por 20 minutos a la vez. Despus de los primeros 20 minutos, puede retirar por un mnimo de 20 minutos antes de volver a aplicar. [place] Tylenol o Motrin segn sea necesario para el dolor. Le dieron un nmero para ortopedista. Solicite robinson mariel para evaluacin en 1 semana si los sntomas no mejoran. Regrese a la reggie de emergencias por empeoramiento del dolor, entumecimiento u hormigueo en los dedos de los pies o cualquier otra preocupacin. Print Language: NORTH KOREAN - Post Discharge Activity Forms/Work/School Notes: Back to Work
== END 2018-01-03 21:06 | disposition home or self-care (01) ==
LOC: JERFT 18:52
PROC: 2W3QX1Z Immobilization of Right Lower Leg using Splint (ICD-10-PCS; principal; 2018-01-03)
DX: S82.141A Displaced bicondylar fracture of right tibia, initial encounter for closed fracture (principal); W01.0XXA Fall on same level from slipping, tripping and stumbling without subsequent striking against object, initial encounter; Y93.01 Activity, walking, marching and hiking; Y92.89 Other specified places as the place of occurrence of the external cause; Y99.8 Other external cause status; I10 Essential (primary) hypertension; E03.9 Hypothyroidism, unspecified; E11.9 Type 2 diabetes mellitus without complications; Z79.84 Long term (current) use of oral hypoglycemic drugs; Z79.82 Long term (current) use of aspirin
CPT/HCPCS: 73610-TC-RT-FY; 73630-TC-RT-FY; 99282-25

== ENCOUNTER 2019-05-30 22:13 | Emergency (ER) | payer SELFPAY ==
[2019-05-30 22:27] VITALS: BP 128/78; PULSE 76; TEMP 99; BMI 30.2
--- NOTE | 2019-05-31 00:50 | PDOC ---
History of Present Illness - General Chief Complaint: Pain Stated Complaint: ABDOMINAL PAIN Time Seen by Provider: 05/31/19 00:10 History Source: Patient Exam Limitations: No Limitations Past History - Past Medical History Allergies/Adverse Reactions: Allergies Allergy/AdvReac Type Severity Reaction Status Date / Time No Known Allergies Allergy Verified 05/30/19 22:27 Home Medications: Ambulatory Orders Aspirin [ASA -] 81 mg PO DAILY tab.chew 09/20/17 Atorvastatin Ca [Lipitor] 40 mg PO HS #30 tablet 09/20/17 Hydrocortisone 2.5% Topical Cr [Anusol-Hc -] 1 applic RC DAILY #1 tube 05/31/19 metFORMIN HCL [Metformin HCl] 500 mg PO BID 05/31/19 Anemia: No Asthma: No Cancer: No Cardiac Disorders: No CVA: No COPD: No CHF: No Dementia: No Diabetes: Yes GI Disorders: No Disorders: No HTN: No Hypercholesterolemia: No Liver Disease: No Seizures: No Thyroid Disease: No - Surgical History Abdominal Surgery: No Appendectomy: No Cardiac Surgery: No Cholecystectomy: No Lung Surgery: No Neurologic Surgery: No Orthopedic Surgery: No - Immunization History Immunization Up to Date: Yes - Suicide/Smoking/Psychosocial Hx Smoking History: Never smoked Have you smoked in the past 12 months: No Information on smoking cessation initiated: No Hx Alcohol Use: No Drug/Substance Use Hx: No Substance Use Type: None Hx Substance Use Treatment: No *Physical Exam - Vital Signs Last Vital Signs Temp Pulse Resp BP Pulse Ox 99.0 F 76 16 128/78 100 05/30/19 22:24 05/30/19 22:24 05/30/19 22:24 05/30/19 22:24 05/30/19 22:24 *DC/Admit/Observation/Transfer Diagnosis at time of Disposition: Rash - Discharge Dispostion Disposition: HOME Decision to Admit order: No - Prescriptions Prescriptions: Hydrocortisone 2.5% Topical Cr [Anusol-Hc -] 1 applic RC DAILY #1 tube - Referrals Referrals: [facility] [place] [Provider Group] - Patient Instructions Printed Discharge Instructions: DI for Rash Additional Instructions: You were seen in the emergency department for your rash. We have prescribed you a steroid cream that you will apply once a day. Please follow up with your primary medical doctor within 1 week after discharge for follow up care. Please return to the emergency department if you have worsening symptoms or new concerning symptoms such as exfoliation of the skin or fevers. Thank you. Te vieron en el departamento de emergencias por tu erupcin. Le hemos recetado robinson crema con esteroides que aplicar robinson vez al da. Letty un seguimiento con levine mdico de cabecera dentro de 1 semana despus del chiara para recibir atencin de seguimiento. Regrese al departamento de emergencias si tiene sntomas empeorados o nuevos sntomas preocupantes, analilia exfoliacin de la piel o fiebre. [place] Print Language: ROMANIAN - Post Discharge Activity
--- NOTE | 2019-05-31 00:58 | PDOC ---
Documentation entered by Cary Wilder SCRIBE, acting as scribe for Comfort Duke MD. Comfort Duke MD: This documentation has been prepared by the Tina camacho Xhesika, SCRIBE, under my direction and personally reviewed by me in its entirety. I confirm that the documentation accurately reflects all work, treatment, procedures, and medical decision making performed by me. Attending Attestation - Resident Resident Name: Sanjeev Brown - ED Attending Attestation I have performed the following: I have examined & evaluated the patient, The case was reviewed & discussed with the resident, I agree w/resident's findings & plan - HPI HPI: 05/31/19 00:40 The patient is a 48 year old female with a significant past medical history of hypertension, diabetes, and hypothyroidism who presents to the ED with a rash on torso x 4 days since Sunday. Patient states the rash became erythematous on Sunday and started blistering yesterday after scratching and scabbing over. Patient notes her child had a rash 1 week ago after eating a tomato, however, her rash looks completely different. Patient reports she had chicken pox in the past. Patient denies previous similar rashes or any new exposures. Patient denies insects around her house. Denies fever, chills, chest pain, SOB, palpitation, dizziness, weakness, N, V, D , abdominal pain, bladder and bowel problems, leg swelling. No new changes in medications. no new abx or OTC meds, no new detergents or clothing items. Allergies: None Social history: Lives with family. No tobacco, ETOH or drug use. Meds: as documented in EMR 05/31/19 00:46 - Physicial Exam PE: 05/31/19 00:41 Agree with the resident's HPI and PE as documented in the electronic medical record. NAD, well appearing, EOMI, PERRL, MMM, nl conjunctiva, anicteric; no oral lesions. neck supple. lungs clear, RRR, abdomen soft nontender. Back nontender. [place] x4, no focal neuro deficits. No peripheral edema. normal color for ethnicity , WWP, diffuse symmetric erythematous papular rash across torso, of varying sizes, some with punctate scab overlying. no blistering. no bleeding. 05/31/19 00:49 - Medical Decision Making 05/31/19 00:50 Vital Signs Temp Pulse Resp BP Pulse Ox 99.0 F 76 16 128/78 100 05/30/19 22:24 05/30/19 22:24 05/30/19 22:24 05/30/19 22:24 05/30/19 22:24 DDx. allergic reaction: hypersensitivity reaction, allergic reaction, anaphylaxis, hives/urticaria. drug rash. dermatitis. serum sickness. vasculitis. medication side effect. -No fevers or systemic findings, clinically well appearing. no mucosal involvement so doubt SJS/TEN. airway patent, doubt anaphylaxis or Dress syndrome. - No evidence of erythema multiforme, SJS/TEN, Lyme, cellulitis, necrotizing fasciitis, no angioedema, meningococcemia, alea mountain spotted fever. -VS wnl, stable, no hypotension. - no vesicular lesions. no crusting. no s/s infection or toxicity. - instructions on avoiding triggers, topical hydrocortisone; no oral systemic steroids with DM benadryl prn for itch. Discharge: Does not appear at this time to be erythema multiforme, bullous, SJS , TEN; no evidence at this time to suggest RMSF or endocarditis or Lyme disease ; patient looks well, nontoxic and is tolerating oral intake; no neurologic signs or symptoms; no headache or photophobia or neck pain; no ev of sepsis; question viral exanthem; afebrile; appropriate for initial o/p tx; d/w pt importance of f/u and pt agrees/understands; told pt to return to nearest ER immediately for any worsening sx incl but not limited to: fever, spreading rash , pain, sore throat, headache, dizziness, chest pain, trouble breathing, or any ssx concerning to the patient. I did d/w pt the aforementioned ddx as possibilities and pt understands to f/u even if better and to return to ER if un -changed/worse. Pt understands these instructions on d/c and is comfortable with discharge plan.
== END 2019-05-31 00:57 | disposition home or self-care (01) ==
LOC: JER 22:13
DX: R21 Rash and other nonspecific skin eruption (principal); I10 Essential (primary) hypertension; E03.9 Hypothyroidism, unspecified; E11.9 Type 2 diabetes mellitus without complications; Z79.84 Long term (current) use of oral hypoglycemic drugs
CPT/HCPCS: 99282-25

== ENCOUNTER 2019-07-25 21:25 | Inpatient (IN) | payer OTHER ==
--- NOTE | 2019-07-25 22:19 | PDOC ---
History of Present Illness - General Chief Complaint: Pain Stated Complaint: ABD PAIN Time Seen by Provider: 07/25/19 22:06 - History of Present Illness Initial Comments: 07/25/19 22:11 CHIEF COMPLAINT: abdominal pain HISTORY OF PRESENT ILLNESS: 48 yo F with hx of NIDDM and HLD presents to ED with abdominal pain x 1 week. Patient reports pain as cramping to her LLQ and reports pain with defecation as well as urination. Patient reports subjective fever throughout the week and was told that "at a clinic we went to today I had a fever." At the clinic she was given metronidazole although "they didn't really know what the problem was." She reports constipation and that her last BM was 3-4 days ago because it has been difficulty to pass her stool. Patient denies any nausea or vomiting. No recent travel or sick contacts. PAST MEDICAL HISTORY: Denies past medical history FAMILY HISTORY: Denies SOCIAL HISTORY:Denies tobacco, alcohol, illicit drug use. SURGICAL HISTORY: , s/p hysterectomy ALLERGIES: No known drug allergies REVIEW OF SYSTEMS General/Constitutional: Subjective fever. Denies weakness, weight change. HEENT: Denies change in vision. Denies ear pain or discharge. Denies sore throat. Cardiovascular: Denies chest pain or shortness of breath. Respiratory: Denies cough, wheezing, or hemoptysis. Gastrointestinal: LLQ pain. Constipation. Pain to rectum with defecation. Denies nausea, vomiting, diarrhea or constipation. Denies rectal bleeding. Genitourinary: Dysuria. Denies hematuria. Musculoskeletal: Denies joint or muscle swelling or pain. Denies neck or back pain. Skin and breasts: Denies rash or easy bruising. Neurologic: Denies headache, vertigo, loss of consciousness, or loss of sensation. Psychiatric: Denies depression or anxiety. PHYSICAL EXAM General Appearance: Well-appearing, appropriately dressed. No apparent distress. HEENT: EOMI, PERRLA, normal ENT inspection, normal voice, TMs normal, pharynx normal. No conjunctival pallor. No photophobia, scleral icterus. Neck: Supple. Trachea midline. No tenderness, rigidity, carotid bruit, stridor , lymphadenopathy, or thyromegaly. Respiratory/Chest: Lungs CTAB. No shortness of breath, chest tenderness, respiratory distress, accessory muscle use. No crackles, rales, rhonchi, stridor , wheezing, dullness Cardiovascular: RRR. S1, S2. No JVD, murmur, bradycardia, tachycardia. Vascular Pulses: Dorsalis-Pedis (R): 2+, Dorsalis-Pedis (L): 2+ Gastrointestinal/Abdominal: Tenderness to LLQ. Normal bowel sounds. Abdomen soft, non-distended. No tenderness or rebound tenderness. No organomegaly, pulsatile mass, guarding, hernia, hepatomegaly, splenomegaly. Lymphatic: No adenopathy, tenderness. Musculoskeletal/Extremities: Normal inspection. FROM of all extremities, normal capillary refill. Pelvis Stable. No CVA tenderness. No tenderness to extremities, pedal edema, swelling, erythema or deformity. Integumentary: Appropriate color, dry, warm. No cyanosis, erythema, jaundice or rash Neurologic: molded goods operator II-XII intact. Fully oriented, alert. Appropriate mood/affect. Motor strength 5/5. No appreciable EOM palsy, facial droop or sensory deficit. Past History - Past Medical History Allergies/Adverse Reactions: Allergies Allergy/AdvReac Type Severity Reaction Status Date / Time No Known Allergies Allergy Verified 07/25/19 21:30 Home Medications: Ambulatory Orders Aspirin [ASA -] 81 mg PO DAILY tab.chew 09/20/17 Atorvastatin Ca [Lipitor] 40 mg PO HS #30 tablet 09/20/17 Hydrocortisone 2.5% Topical Cr [Anusol-Hc -] 1 applic RC DAILY #1 tube 05/31/19 metFORMIN HCL [Metformin HCl] 500 mg PO BID 05/31/19 Anemia: No Asthma: No Cancer: No Cardiac Disorders: No CVA: No COPD: No CHF: No Dementia: No Diabetes: Yes GI Disorders: No Disorders: No HTN: No Hypercholesterolemia: No Liver Disease: No Seizures: No Thyroid Disease: No - Surgical History Abdominal Surgery: No Appendectomy: No Cardiac Surgery: No Cholecystectomy: No Lung Surgery: No Neurologic Surgery: No Orthopedic Surgery: No - Immunization History Immunization Up to Date: Yes - Psycho Social/Smoking Cessation Hx Smoking History: Never smoked Have you smoked in the past 12 months: No Information on smoking cessation initiated: No Hx Alcohol Use: No Drug/Substance Use Hx: No Substance Use Type: None Hx Substance Use Treatment: No *Physical Exam - Vital Signs Last Vital Signs Temp Pulse Resp BP Pulse Ox 99.1 F 104 H 18 109/63 100 10/25/19 21:28 07/25/19 21:28 07/25/19 21:28 07/25/19 21:28 07/25/19 21:28 ED Treatment Course - LABORATORY CBC & Chemistry Diagram: 07/25/19 22:43 07/25/19 22:43 Medical Decision Making - Medical Decision Making 07/26/19 01:18 48 yo F with hx of NIDDM and HLD presents to ED with abdominal pain x 1 week. -labs -CTAP Laboratory Tests 07/25/19 07/25/19 07/25/19 22:43 22:43 22:43 WBC 15.0 H Sodium 132 L Random Glucose 319 H Ur Specific [place] 1.049 H Urine Protein 1+ H Urine Glucose (UA) 3+ H Urine Ketones 4+ H Urine WBC (Auto) 27.0 -glucose 319, will start IVF -Macrobid for UTI CT suggestive of colitis. -cipro, flagyl Pt hyperglycemic with ketosis but not acidotic. Admit for poorly controlled diabetes, colitis. PCP Giacomo, will admit to hospitalist. 07/26/19 02:04 Discussed case with admitting resident MD Rand who accepts patient for inpatient services . Discharge - Discharge Information Problems reviewed: Yes Clinical Impression/Diagnosis: Colitis, Hyperglycemia Condition: Stable - Admission Yes - Follow up/Referral - Patient Discharge Instructions - Post Discharge Activity
[2019-07-25 22:53] LABS: BASO % 0.3 % (0-2.0); EOS % 0.2 % (0-4.5); HEMATOCRIT 39.6 % (32.4-45.2); HEMOGLOBIN 13.2 GM/dL (10.7-15.3); LYMPH % 9.1 % (8-40); MCH 27.1 pg (25.7-33.7); MCHC 33.3 g/dl (32.0-36.0); MEAN CELL VOLUME 81.3 fl (80-96); MEAN PLT VOLUME 8.5 fl (7.5-11.1); MONO % 3.7 % (3.8-10.2); NEUT % 86.7 % (42.8-82.8); PLATELET COUNT 284 K/MM3 (134-434); RBC 4.87 M/mm3 (3.60-5.2); RDW 12.7 % (11.6-15.6)
[2019-07-25 23:17] LABS: BILIRUBIN,TOTAL 0.6 mg/dL (0.2-1); CALCIUM 8.4 mg/dL (8.5-10.1); CREATININE 0.6 mg/dL (0.55-1.3); POTASSIUM 3.8 mmol/L (3.5-5.1); TOT PROT 6.9 g/dl (6.4-8.2); URINE APPEARANCE CLEAR; URINE COLOR DK YELLOW; URINE GLUCOSE (UA) 3+ (NEGATIVE)
[2019-07-25 23:18] LABS: PH,URINE 5.5 (5.0-8.0); URINE BILIRUBIN NEGATIVE (NEGATIVE); URINE KETONE 4+ (NEGATIVE); URINE PROTEIN 1+ (NEGATIVE)
[2019-07-25 23:19] LABS: EPI CELLS 3.3 /HPF (0-5/HPF); HYALINE CASTS 30.54 /lpf (0-8); URINE BACTERIA 293.2 /hpf (NEGATIVE); URINE LEUK ESTERASE TRACE (NEGATIVE); URINE NITRITE NEGATIVE (NEGATIVE); URINE RBC 7.2 /hpf (0-4)
[2019-07-25] MEDS ORDERED: SODIUM CHLORIDE 0.9% 500 ML INFUS.BAG IV ONE (23:24)
[2019-07-25] MEDS ORDERED: PHENAZOPYRIDINE HCL 100 MG TABLET (FP) PO ONE (23:32)
[2019-07-25] MEDS ORDERED: PHENAZOPYRIDINE HCL 100 MG TABLET (FP) ONE (23:47)
[2019-07-25] MEDS ORDERED: NITROFURANTOIN MACROCRYSTAL 50 MG CAPSULE (FP) ONE (23:47)
[2019-07-25] MEDS: NITROFURANTOIN MACROCRYSTAL 50 MG CAPSULE (FP) PO SCH (23:55)
[2019-07-26] MEDS ORDERED: CIPROFLOXACIN 400 MG/D5W 400 MG/200 ML IVPB IVPB ONE (01:08)
[2019-07-26 01:13] LABS: VENOUS PC02 38.5 mmHg (38-52); VENOUS PH 7.42 (7.31-7.41); VENOUS PO2 54.5 mmHg (28-48)
[2019-07-26 01:37] LABS: INR 1.16 (0.83-1.09); PROTHROMBIN TIME (PATIENT) 13.7 SEC (9.7-13.0)
[2019-07-26] MEDS ORDERED: SODIUM CHLORIDE 0.9% 500 ML INFUS.BAG IV ONE (01:52)
[2019-07-26] MEDS ORDERED: INSULIN (NOVOLOG) ASPART 100 UNITS/ML 10ML VIAL SQ ONE (01:55)
--- NOTE | 2019-07-26 01:57 | PN ---
Teaching Attending Note Name of Resident: Parul Rand ATTENDING PHYSICIAN STATEMENT I saw and evaluated the patient. I reviewed the resident's note and discussed the case with the resident. I agree with the resident's findings and plan as documented. SUBJECTIVE: Patient is a 48 year ld woman with a PMH of NIDDM, HTN, Hypothyroidism, Tubal ligation and HLD presenting to the ER with abdominal pain x 1 week. Patient reports pain as cramping to her LLQ and reports pain with defecation as well as urination. Patient reports subjective fever throughout the week and was told that "at a clinic we went to today I had a fever." At the clinic she was given metronidazole although "they didn't really know what the problem was." She reports constipation and that her last BM was 3-4 days ago because it has been difficulty to pass her stool. Patient denies any nausea, vomiting, chest pain, headache, dysuria, frequency, SOB or dizziness. No recent obvious sick contacts or travel. Denies tobacco, alcohol or illicit drug use. OBJECTIVE: Alert Vital Signs Period Temp Pulse Resp BP Sys/Ochoa Pulse Ox Last 24 Hr 99.1 F 91-104 18-18 109-111/63-65 97-100 HEENT: No Jaundice, eye redness or discharge, PERRLA, EOMI. Normocephalic, atraumatic. External ears are normal and hearing is grossly intact. No nasal discharge. Neck: Supple, nontender. No palpable adenopathy or thyromegaly. No JVD Chest: Good effort. Clear to auscultation and percussion. Heart: Regular. No S3, rub or murmur Abdomen: Not distended, soft, RLQ and lower abdominal tenderness; no HSM. No rebound or guarding. Normal bowel sounds. Ext: Peripheral pulses intact. No leg edema. Skin: Warm and dry. No petechiae, rash or ecchymosis. Neuro: Alert. Oriented x3. CN 2-12 grossly intact. Sensation grossly intact in all four extremities and DTR are symmetric. Psych: Appropriate mood and affect. Good insight. Current Medications Generic Name Dose Route Start Last Admin Trade Name Freq PRN Reason Stop Dose Admin Acetaminophen 650 mg 07/26/19 01:53 Tylenol - PO Q4H PRN PAIN LEVEL 6-10 Docusate Sodium 100 mg 07/26/19 03:03 Colace - PO BID PRN CONSTIPATION Enoxaparin Sodium 40 mg 07/26/19 10:00 Lovenox - SQ DAILY LATA Sodium Chloride 1,000 mls @ 100 mls/hr 07/26/19 02:00 07/26/19 02:07 Normal Saline - IV 100 mls/hr ASDIR LATA Administration Metronidazole 500 mg in 100 mls @ 100 mls/hr 07/26/19 10:00 Flagyl 500mg Premixed Ivpb - IVPB Q8H-IV LATA Levofloxacin 500 mg in 100 mls @ 100 mls/hr 07/26/19 10:00 Levaquin 500 Mg Premixed Ivpb - IVPB 07/26/19 10:59 ONCE ONE Protocol Insulin Aspart 1 vial 07/26/19 07:00 Novolog Vial Sliding Scale - SQ ACHS LATA Protocol Nitrofurantoin Macrocrystals 100 mg 07/25/19 23:45 07/25/19 23:55 Macrodantin - PO 100 mg ONCE LATA Administration Polyethylene Glycol 17 gm 07/26/19 10:00 Miralax (For Daily Use) - PO DAILY LATA Polyethylene Glycol 17 gm 07/26/19 03:03 Miralax (For Daily Use) - PO 07/26/19 03:04 ONCE ONE Home Medications Medication Instructions Recorded Aspirin [ASA -] 81 mg PO DAILY tab.chew 09/20/17 Atorvastatin Ca [Lipitor] 40 mg PO HS #30 tablet 09/20/17 metFORMIN HCL [Metformin HCl] 500 mg PO BID 05/31/19 Glipizide 10 mg PO DAILY 07/26/19 Abnormal Lab Results 07/25/19 07/25/19 07/25/19 22:43 22:43 22:43 WBC 15.0 H Absolute Neuts (auto) 13.0 H Neutrophils % 86.7 H D Monocytes % 3.7 L PT with INR INR VBG pH POC VBG pO2 VBG O2 Sat (Bigg) Sodium 132 L Chloride 96 L Random Glucose 319 H Calcium 8.4 L AST 12 L Alkaline Phosphatase 133 H Albumin 3.0 L Beta-Hydroxybutyrate 8.2 H Ur Specific [place] 1.049 H Urine Protein 1+ H Urine Glucose (UA) 3+ H Urine Ketones 4+ H 07/26/19 07/26/19 07/26/19 00:51 00:51 00:51 WBC Absolute Neuts (auto) Neutrophils % Monocytes % PT with INR 13.70 H INR 1.16 H VBG pH 7.42 H POC VBG pO2 54.5 H VBG O2 Sat (Bigg) 87.8 H Sodium Chloride Random Glucose Calcium AST Alkaline Phosphatase Albumin Beta-Hydroxybutyrate 10.3 H Ur Specific [place] Urine Protein Urine Glucose (UA) Urine Ketones ASSESSMENT AND PLAN: 1. Colitis - Preliminary reading of the CT abdomen/pelvis ?without contrast suggests colitis. She also has pyuria but only trace leukocyte esterase. Started on IV flagyl and levofloxacin. Miralax for constipation and continue IV NS. Will get TSH. Consult GI and ID. Will repeat urinalysis when stable and if proteinuria persists, will ad ACEI/ARB to her regimen. Will continue comprehensive care for all of patients comorbid conditions. 2. Hypoalbuminemia - Possibly due to combined effects of proteinuria, malnutrition and inflammation associated with comorbid chronic conditions. Will ensure adequate dietary protein intake and also consult industrial fabric cutter. 3. Uncontrolled DM Got SQ insulin in the ER. For now, we will hold the home diabetes drugs and implement sliding scale insulin regimen. Provide comprehensive diabetes care with patient teaching and counseling about the importance of adherence to prescribed diabetes regimen, euglycemia, eye care and foot care. 4. Overweight Counseled on the risks associated with being overweight. Will provide patient all the necessary assistance, counseling and positive reinforcement to facilitate weight loss. Consult industrial fabric cutter. 5. DVT prophylaxis - Lovenox 40 mg SQ q 24 hours. 6. Advance directives - Full code
[2019-07-26] MEDS ORDERED: SODIUM CHLORIDE 1,000 ML IV SCH (02:00)
[2019-07-26] MEDS ORDERED: ACETAMINOPHEN 1000 MG/100 ML VIAL (NON FORMULARY) IVPB ONE (02:58)
[2019-07-26] MEDS ORDERED: POLYETHYLENE GLYCOL 3350 119 GM BTL PO ONE (03:03)
[2019-07-26] MEDS ORDERED: DOCUSATE SODIUM 100 MG CAPSULE (FP) PO PRN (03:03)
--- NOTE | 2019-07-26 03:16 | HP ---
CHIEF COMPLAINT: abdominal pain PCP: HISTORY OF PRESENT ILLNESS: Patient is a 48 y/o female with a history of NIDDM and HLD who presented for abdominal pain. patient reports her pain has been going on for 1 week. The pain is at her lower abdomen and on her right flank. She reports she has never had pain like this in the past. Patient states it is a cramping pain. She has not had a bowel movement for 4 days. She denies eating anything different. Denies any diarrhea or nausea. Denies any sick contacts. Patient reports her sugars are not very well controlled even with medication compliance. Patient recently went to a clinic with these symptoms where she was prescribed Metronidazole. she had taken a few doses before presenting to the ED. ER course was notable for: (1) (2) (3) Recent Travel: denies PAST MEDICAL HISTORY: NIDDM and HLD PAST SURGICAL HISTORY: denies Social History: Smoking: denies Alcohol: denies Drugs: denies Allergies No Known Allergies Allergy (Verified 07/25/19 21:30) HOME MEDICATIONS: Home Medications Medication Instructions Recorded Aspirin [ASA -] 81 mg PO DAILY tab.chew 09/20/17 Atorvastatin Ca [Lipitor] 40 mg PO HS #30 tablet 09/20/17 metFORMIN HCL [Metformin HCl] 500 mg PO BID 05/31/19 Glipizide 10 mg PO DAILY 07/26/19 REVIEW OF SYSTEMS CONSTITUTIONAL: Absent: fever, chills, diaphoresis, generalized weakness, malaise, loss of appetite, weight change HEENT: Absent: rhinorrhea, nasal congestion, throat pain, throat swelling, difficulty swallowing, mouth swelling, ear pain, eye pain, visual changes CARDIOVASCULAR: Absent: chest pain, syncope, palpitations, irregular heart rate, lightheadedness , peripheral edema RESPIRATORY: Absent: cough, shortness of breath, dyspnea with exertion, orthopnea, wheezing, stridor, hemoptysis GASTROINTESTINAL:abdominal pain, Absent: abdominal pain, abdominal distension, nausea, vomiting, diarrhea, constipation, melena, hematochezia GENITOURINARY: Absent: dysuria, frequency, urgency, hesitancy, hematuria, flank pain, genital pain MUSCULOSKELETAL: Absent: myalgia, arthralgia, joint swelling, back pain, neck pain SKIN: Absent: rash, itching, pallor HEMATOLOGIC/IMMUNOLOGIC: Absent: easy bleeding, easy bruising, lymphadenopathy, frequent infections ENDOCRINE: Absent: unexplained weight gain, unexplained weight loss, heat intolerance, cold intolerance NEUROLOGIC: Absent: headache, focal weakness or paresthesias, dizziness, unsteady gait, seizure, mental status changes, bladder or bowel incontinence PSYCHIATRIC: Absent: anxiety, depression, suicidal or homicidal ideation, hallucinations. PHYSICAL EXAMINATION Vital Signs - 24 hr 07/25/19 07/26/19 07/26/19 21:28 01:53 02:40 Temperature 99.1 F Pulse Rate 104 H Pulse Rate [ 91 H Apical] Respiratory 18 18 Rate Blood Pressure 109/63 Blood Pressure 111/65 [Left Arm] O2 Sat by Pulse 100 97 97 Oximetry (%) GENERAL: Awake, alert, and fully oriented, in no acute distress. HEAD: Normal with no signs of trauma. EYES: Pupils equal, round and reactive to light, extraocular movements intact, EARS, NOSE, THROAT: Moist mucous membranes. NECK: Normal range of motion, supple without lymphadenopathy, JVD, or masses. LUNGS: Breath sounds equal, clear to auscultation bilaterally. No wheezes, and no crackles. No accessory muscle use. HEART: Regular rate and rhythm, 3/6 murmur at upper sternal border ABDOMEN: tenderness to RLQ and mid epigastricy. MUSCULOSKELETAL: Normal range of motion at all joints. LOWER EXTREMITIES: 2+ pulses, warm, well-perfused. No calf tenderness. No peripheral edema. SKIN: Warm, dry, normal turgor, no rashes or lesions noted, normal capillary refill. CBC, BMP 07/25/19 22:43 07/25/19 22:43 ASSESSMENT/PLAN: Patient is a 48 y/o female with a history of NIDDM and HLD who presented for abdominal pain. #abdominal pain 2/2 to colitis - Colitis seen on CT scan, f/u official read, likely need a CT with contrast - given Cipro and Flagyl in ED, will continue Levofloxacin and Flagyl - npo, bowel rest for now - will continue NS fluids - WBC 15, continue to trend - consulted Jeffrey KEARNEY - consulted GIChucho #murmur at upper sternal border - Echo 09/16: EF normal, fxn normal - monitor, consider ECHO as an outpatient #hyperglycemia - patient uncontrolled on home regimen - BGM q6h - SS ACHS - 8 units regular insulin given 1 time - halfway house counselor on adherence to medication - f/u A1C - patient not acidotic #constipation - hold enemas in setting of colitis? - begin miralax and colace #HLD - confirm home medication and continue statin #DVT ppx - Lovenox 40 sq daily FEN - NS - NPO Dispo: monitor on med surg Visit type - Emergency Visit Emergency Visit: Yes ED Registration Date: 07/26/19 Care time: The patient presented to the Emergency Department on the above date and was hospitalized for further evaluation of their emergent condition. - New Patient This patient is new to me today: Yes Date on this admission: 07/26/19 - Critical Care Critical Care patient: No ATTENDING PHYSICIAN STATEMENT I saw and evaluated the patient. I reviewed the resident's note and discussed the case with the resident. I agree with the resident's findings and plan as documented. SUBJECTIVE: OBJECTIVE: ASSESSMENT AND PLAN:
[2019-07-26] MEDS ORDERED: PNEUMOC 13-VAL CONJ-DIP CRM/PF 0.5 ML DISP.SYRIN IM ONE (04:21)
[2019-07-26] MEDS ORDERED: INSULIN (NOVOLOG) ASPART 100 UNITS/ML 10ML VIAL ONE (05:50)
[2019-07-26] MEDS: INSULIN SLIDING SCALE (NOVOLOG) 1 VIAL SQ SCH ×4 (06:53→21:06)
[2019-07-26 07:55] LABS: BASO % 0.1 % (0-2.0); EOS % 0.2 % (0-4.5); HEMATOCRIT 34.3 % (32.4-45.2); HEMOGLOBIN 11.5 GM/dL (10.7-15.3); LYMPH % 9.9 % (8-40); MCH 27.1 pg (25.7-33.7); MCHC 33.6 g/dl (32.0-36.0); MEAN CELL VOLUME 80.6 fl (80-96); MEAN PLT VOLUME 8.2 fl (7.5-11.1); MONO % 4.2 % (3.8-10.2); NEUT % 85.6 % (42.8-82.8); PLATELET COUNT 260 K/MM3 (134-434); RBC 4.26 M/mm3 (3.60-5.2); RDW 12.7 % (11.6-15.6); WHITE BLOOD COUNT 11.8 K/mm3 (4.0-10.0)
[2019-07-26 08:42] LABS: ALBUMIN 2.6 g/dl (3.4-5.0); BILIRUBIN,TOTAL 0.6 mg/dL (0.2-1); BLOOD UREA NITROGEN 6.5 mg/dL (7-18); CALCIUM 7.9 mg/dL (8.5-10.1); CREATININE 0.4 mg/dL (0.55-1.3); MAGNESIUM 1.9 mg/dL (1.8-2.4); POTASSIUM 3.4 mmol/L (3.5-5.1); TOT PROT 5.8 g/dl (6.4-8.2)
[2019-07-26] MEDS: POLYETHYLENE GLYCOL 3350 119 GM BTL PO SCH (09:11)
[2019-07-26] MEDS: ENOXAPARIN NA (PORCINE) 40 MG/0.4 ML DISP.SYRIN SQ SCH (09:11)
[2019-07-26] MEDS: ACETAMINOPHEN 325 MG TABLET (FP) PO PRN ×2 (10:34→20:02)
[2019-07-26] MEDS ORDERED: PNEUMOCOCCAL 23 VACCINE 0.5 ML VIAL IM ONE (11:00)
--- NOTE | 2019-07-26 12:37 | PN ---
Physical Exam: SUBJECTIVE: Patient seen and examined she is better and no more pains, no fever and she is better and no sob or cp rest of ros are normal OBJECTIVE: Vital Signs Period Temp Pulse Resp BP Sys/Ochoa Pulse Ox Last 24 Hr 98.4 F-99.2 F 84-104 18-91 104-121/56-69 96-100 GENERAL: The patient is awake, alert, and fully oriented, in no acute distress. HEAD: Normal with no signs of trauma. EYES: PERRL, extraocular movements intact, sclera anicteric, conjunctiva clear. No ptosis. ENT: Ears normal, nares patent, oropharynx clear without exudates, moist mucous membranes. NECK: Trachea midline, full range of motion, supple. LUNGS: Breath sounds equal, clear to auscultation bilaterally, no wheezes, no crackles, no accessory muscle use. HEART: Regular rate and rhythm, S1, S2 without murmur, rub or gallop. ABDOMEN: Soft, defuse tenderness but no rebound tenderness. EXTREMITIES: 2+ pulses, warm, well-perfused, no edema. NEUROLOGICAL: Cranial nerves II through XII grossly intact. Normal speech, gait not observed. Laboratory Results - last 24 hr 07/25/19 07/25/19 07/25/19 22:43 22:43 22:43 WBC 15.0 H RBC 4.87 Hgb 13.2 Hct 39.6 MCV 81.3 MCH 27.1 MCHC 33.3 RDW 12.7 Plt Count 284 D MPV 8.5 Absolute Neuts (auto) 13.0 H Neutrophils % 86.7 H D Lymphocytes % 9.1 D Monocytes % 3.7 L Eosinophils % 0.2 D Basophils % 0.3 Nucleated RBC % 0 PT with INR INR PTT (Actin FS) VBG pH POC VBG pCO2 POC VBG pO2 VBG HCO3 VBG O2 Sat (Bigg) VBG Base Excess Sodium 132 L Potassium 3.8 Chloride 96 L Carbon Dioxide 26 Anion Gap 10 BUN 15.0 Creatinine 0.6 Est GFR (CKD-EPI)AfAm 124.05 Est GFR (CKD-EPI)NonAf 107.03 POC Glucometer Random Glucose 319 H Hemoglobin A1c % Lactic Acid Calcium 8.4 L Phosphorus Magnesium Total Bilirubin 0.6 AST 12 L ALT 14 Alkaline Phosphatase 133 H Total Protein 6.9 Albumin 3.0 L Lipase 73 Beta-Hydroxybutyrate 8.2 H Serum , Qual Urine Color Urine Appearance Urine pH Ur Specific Deloit Urine Protein Urine Glucose (UA) Urine Ketones Urine Blood Urine Nitrite Urine Bilirubin Urine Urobilinogen Ur Leukocyte Esterase Urine WBC (Auto) Urine RBC (Auto) Urine Casts (Auto) U Epithel Cells (Auto) Urine Bacteria (Auto) 07/25/19 07/25/19 07/26/19 22:43 22:43 00:51 WBC RBC Hgb Hct MCV MCH MCHC RDW Plt Count MPV Absolute Neuts (auto) Neutrophils % Lymphocytes % Monocytes % Eosinophils % Basophils % Nucleated RBC % PT with INR INR PTT (Actin FS) 32.4 VBG pH POC VBG pCO2 POC VBG pO2 VBG HCO3 VBG O2 Sat (Bigg) VBG Base Excess Sodium Potassium Chloride Carbon Dioxide Anion Gap BUN Creatinine Est GFR (CKD-EPI)AfAm Est GFR (CKD-EPI)NonAf POC Glucometer Random Glucose Hemoglobin A1c % Lactic Acid Calcium Phosphorus Magnesium Total Bilirubin AST ALT Alkaline Phosphatase Total Protein Albumin Lipase Beta-Hydroxybutyrate Serum , Qual Negative Urine Color Dk yellow Urine Appearance Clear Urine pH 5.5 Ur Specific Deloit 1.049 H Urine Protein 1+ H Urine Glucose (UA) 3+ H Urine Ketones 4+ H Urine Blood Negative Urine Nitrite Negative Urine Bilirubin Negative Urine Urobilinogen 1.0 Ur Leukocyte Esterase Trace Urine WBC (Auto) 27.0 Urine RBC (Auto) 7.2 Urine Casts (Auto) 30.54 U Epithel Cells (Auto) 3.3 Urine Bacteria (Auto) 293.2 07/26/19 07/26/19 07/26/19 00:51 00:51 00:51 WBC RBC Hgb Hct MCV MCH MCHC RDW Plt Count MPV Absolute Neuts (auto) Neutrophils % Lymphocytes % Monocytes % Eosinophils % Basophils % Nucleated RBC % PT with INR 13.70 H INR 1.16 H PTT (Actin FS) VBG pH 7.42 H POC VBG pCO2 38.5 POC VBG pO2 54.5 H VBG HCO3 24.6 VBG O2 Sat (Bigg) 87.8 H VBG Base Excess 0.8 Sodium Potassium Chloride Carbon Dioxide Anion Gap BUN Creatinine Est GFR (CKD-EPI)AfAm Est GFR (CKD-EPI)NonAf POC Glucometer Random Glucose Hemoglobin A1c % Lactic Acid 1.1 Calcium Phosphorus Magnesium Total Bilirubin AST ALT Alkaline Phosphatase Total Protein Albumin Lipase Beta-Hydroxybutyrate Serum , Qual Urine Color Urine Appearance Urine pH Ur Specific Deloit Urine Protein Urine Glucose (UA) Urine Ketones Urine Blood Urine Nitrite Urine Bilirubin Urine Urobilinogen Ur Leukocyte Esterase Urine WBC (Auto) Urine RBC (Auto) Urine Casts (Auto) U Epithel Cells (Auto) Urine Bacteria (Auto) 07/26/19 07/26/19 07/26/19 00:51 06:51 07:10 WBC 11.8 H RBC 4.26 Hgb 11.5 Hct 34.3 MCV 80.6 MCH 27.1 MCHC 33.6 RDW 12.7 Plt Count 260 MPV 8.2 Absolute Neuts (auto) 10.1 H Neutrophils % 85.6 H Lymphocytes % 9.9 Monocytes % 4.2 Eosinophils % 0.2 Basophils % 0.1 Nucleated RBC % 0 PT with INR INR PTT (Actin FS) VBG pH POC VBG pCO2 POC VBG pO2 VBG HCO3 VBG O2 Sat (Bigg) VBG Base Excess Sodium Potassium Chloride Carbon Dioxide Anion Gap BUN Creatinine Est GFR (CKD-EPI)AfAm Est GFR (CKD-EPI)NonAf POC Glucometer 218 Random Glucose Hemoglobin A1c % Lactic Acid Calcium Phosphorus Magnesium Total Bilirubin AST ALT Alkaline Phosphatase Total Protein Albumin Lipase Beta-Hydroxybutyrate 10.3 H Serum , Qual Urine Color Urine Appearance Urine pH Ur Specific Deloit Urine Protein Urine Glucose (UA) Urine Ketones Urine Blood Urine Nitrite Urine Bilirubin Urine Urobilinogen Ur Leukocyte Esterase Urine WBC (Auto) Urine RBC (Auto) Urine Casts (Auto) U Epithel Cells (Auto) Urine Bacteria (Auto) 07/26/19 07/26/19 07/26/19 07:10 07:10 10:29 WBC RBC Hgb Hct MCV MCH MCHC RDW Plt Count MPV Absolute Neuts (auto) Neutrophils % Lymphocytes % Monocytes % Eosinophils % Basophils % Nucleated RBC % PT with INR INR PTT (Actin FS) VBG pH POC VBG pCO2 POC VBG pO2 VBG HCO3 VBG O2 Sat (Bigg) VBG Base Excess Sodium 137 Potassium 3.4 L Chloride 104 Carbon Dioxide 25 Anion Gap 8 BUN 6.5 L Creatinine 0.4 L Est GFR (CKD-EPI)AfAm 141.75 Est GFR (CKD-EPI)NonAf 122.30 POC Glucometer 192 Random Glucose 227 H Hemoglobin A1c % 11.0 H Lactic Acid Calcium 7.9 L Phosphorus 3.0 Magnesium 1.9 Total Bilirubin 0.6 AST 10 L ALT 11 L Alkaline Phosphatase 104 Total Protein 5.8 L Albumin 2.6 L Lipase Beta-Hydroxybutyrate Serum , Qual Urine Color Urine Appearance Urine pH Ur Specific Deloit Urine Protein Urine Glucose (UA) Urine Ketones Urine Blood Urine Nitrite Urine Bilirubin Urine Urobilinogen Ur Leukocyte Esterase Urine WBC (Auto) Urine RBC (Auto) Urine Casts (Auto) U Epithel Cells (Auto) Urine Bacteria (Auto) Active Medications Generic Name Dose Route Start Last Admin Trade Name Freq PRN Reason Stop Dose Admin Acetaminophen 650 mg 07/26/19 01:53 07/26/19 10:34 Tylenol - PO 650 mg Q4H PRN Administration PAIN LEVEL 6-10 Docusate Sodium 100 mg 07/26/19 03:03 07/26/19 09:11 Colace - PO 100 mg BID PRN Administration CONSTIPATION Enoxaparin Sodium 40 mg 07/26/19 10:00 07/26/19 09:11 Lovenox - SQ 40 mg DAILY LATA Administration Sodium Chloride 1,000 mls @ 100 mls/hr 07/26/19 02:00 07/26/19 02:07 Normal Saline - IV 100 mls/hr ASDIR LATA Administration Metronidazole 500 mg in 100 mls @ 100 mls/hr 07/26/19 10:00 07/26/19 09:11 Flagyl 500mg Premixed Ivpb - IVPB 100 mls/hr Q8H-IV LATA Administration Insulin Aspart 1 vial 07/26/19 07:00 07/26/19 10:33 Novolog Vial Sliding Scale - SQ Not Given ACHS [facility] Protocol Nitrofurantoin Macrocrystals 100 mg 07/25/19 23:45 07/25/19 23:55 Macrodantin - PO 100 mg ONCE LATA Administration Polyethylene Glycol 17 gm 07/26/19 10:00 07/26/19 09:11 Miralax (For Daily Use) - PO 17 gm DAILY LATA Administration ASSESSMENT/PLAN: Patient is a 48 y/o female with a history of NIDDM and HLD who presented for abdominal pain. #abdominal pain 2/2 to colitis - Colitis seen on CT scan, - given Cipro and Flagyl in ED, will continue Levofloxacin and Flagyl - npo, bowel rest for now - will continue NS fluids - consulted Jeffrey KEARNEY - consulted GI, Lantin #murmur at upper sternal border - Echo 09/16: EF normal, fxn normal - monitor, consider ECHO as an outpatient #hyperglycemia - patient uncontrolled on home regimen - BGM q6h - SS ACHS - 8 units regular insulin given 1 time - preparole counseling aide on adherence to medication - f/u A1C - patient not acidotic #HLD - confirm home medication and continue statin #DVT ppx - Lovenox 40 sq daily FEN - NS - NPO Visit type - Emergency Visit Emergency Visit: Yes ED Registration Date: 07/26/19 Care time: The patient presented to the Emergency Department on the above date and was hospitalized for further evaluation of their emergent condition. - New Patient This patient is new to me today: Yes Date on this admission: 07/26/19 - Critical Care Critical Care patient: No - Discharge Referral Referred to [facility] No
[2019-07-26] MEDS ORDERED: CIPROFLOXACIN 400 MG/D5W 400 MG/200 ML IVPB IVPB SCH ×2 (12:45→18:00)
--- NOTE | 2019-07-26 13:21 | CON.GI ---
Consult Consult Specialty:: gi coverage - History of Present Illness History of Present Illness: 48 y/o F was doing well until yesterday when she developed severe abdominal pain 07/10 associated with passing of mucus in her stool. 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 History of Recent Travel: No Home Medications - Allergies Allergies/Adverse Reactions: Allergies Allergy/AdvReac Type Severity Reaction Status Date / Time No Known Allergies Allergy Verified 07/25/19 21:30 - Home Medications Home Medications: Ambulatory Orders Aspirin [ASA -] 81 mg PO DAILY tab.chew 09/20/17 Atorvastatin Ca [Lipitor] 40 mg PO HS #30 tablet 09/20/17 metFORMIN HCL [Metformin HCl] 500 mg PO BID 05/31/19 Glipizide 10 mg PO DAILY 07/26/19 Physical Exam-GI Vital Signs: Vital Signs Temperature 99.2 F 07/26/19 09:00 Pulse Rate 86 07/26/19 09:00 Respiratory Rate 18 07/26/19 09:00 Blood Pressure 115/69 07/26/19 09:00 O2 Sat by Pulse Oximetry (%) 98 07/26/19 09:00 Constitutional: Yes: Well Nourished, Poor Hygeine HENT: Yes: Atraumatic Neck: Yes: Supple Cardiovascular: Yes: Regular Rate and Rhythm Respiratory: Yes: CTA Bilaterally ...Palpate: Yes: Soft, Tenderness (--llq). No: Firm/Rigid, Guarding, Hepatomegaly, Mass, Pulsatile Mass, Splenomegaly ...Percussion: No: Tympanitic Labs: CBC, BMP 07/26/19 07:10 07/26/19 07:10 INR, PTT INR 1.16 (0.83-1.09) H 07/26/19 00:51 Current Medications Generic Name Dose Route Start Last Admin Trade Name Freq PRN Reason Stop Dose Admin Acetaminophen 650 mg 07/26/19 01:53 07/26/19 10:34 Tylenol - PO 650 mg Q4H PRN Administration PAIN LEVEL 6-10 Docusate Sodium 100 mg 07/26/19 03:03 07/26/19 09:11 Colace - PO 100 mg BID PRN Administration CONSTIPATION Enoxaparin Sodium 40 mg 07/26/19 10:00 07/26/19 09:11 Lovenox - SQ 40 mg DAILY LATA Administration Sodium Chloride 1,000 mls @ 100 mls/hr 07/26/19 02:00 07/26/19 02:07 Normal Saline - IV 100 mls/hr ASDIR LATA Administration Metronidazole 500 mg in 100 mls @ 100 mls/hr 07/26/19 18:00 Flagyl 500mg Premixed Ivpb - IVPB Q8H-IV LATA Levofloxacin 500 mg in 100 mls @ 100 mls/hr 07/27/19 10:00 Levaquin 500 Mg Premixed Ivpb - IVPB DAILY [facility] Protocol Insulin Aspart 1 vial 07/26/19 07:00 07/26/19 10:33 Novolog Vial Sliding Scale - SQ Not Given ACHS [facility] Protocol Nitrofurantoin Macrocrystals 100 mg 07/25/19 23:45 07/25/19 23:55 Macrodantin - PO 100 mg ONCE LATA Administration Polyethylene Glycol 17 gm 07/26/19 10:00 07/26/19 09:11 Miralax (For Daily Use) - PO 17 gm DAILY LATA Administration Problem List - Problems (1) Ischemic colitis Assessment/Plan: R> IV hydration continue antibiotics Code(s): K55.9 - VASCULAR DISORDER OF INTESTINE, UNSPECIFIED
[2019-07-26] MEDS: SODIUM CHLORIDE 1,000 ML IV SCH (13:53)
--- NOTE | 2019-07-26 17:10 | PN ---
Progress Note (short form) - Note Progress Note: ID CONSULT DICTATED COLITIS INFECTIOUS V. INFLAMMATORY NIDDM OBTAIN C/S CONTINUE LEVAQUIN/ FLAGYL
--- NOTE | 2019-07-26 17:24 | CONS ---
INFECTIOUS DISEASE CONSULTATION DATE OF CONSULTATION: DATE OF DICTATION: 07/26/2019 HISTORY: The patient is a 48-year-old Vincentian-speaking female who is evaluated for colitis. She was admitted through the emergency room with a several-day history of worsening abdominal pain. She had developed crampy abdominal pain localized to the left lower quadrant associated with mucoid stool. She was seen at an outside clinic and was prescribed metronidazole without significant improvement. She presented to the emergency room where a CAT scan of the abdomen and pelvis was performed. She was found to have colitis involving the sigmoid and rectum. She has had subjective fevers. She denies any chills. Denies any vomiting. No complaints of hematochezia or melena. Denies prior history of colitis. No recent antibiotic therapy. She was seen in the emergency room in May 2019, with abdominal pain. PAST MEDICAL HISTORY: Positive for hyperlipidemia, [id number] diabetes mellitus. PAST SURGICAL HISTORY: Status post section and hysterectomy. ALLERGIES: No known allergies. MEDICATIONS: At the present time include Tylenol, Colace, Lovenox, Flagyl, Levaquin. SOCIAL HISTORY: She resides at home in the community. Nonsmoker, nondrinker. LABORATORY DATA: White count on admission 15.0, presently 11.8, hematocrit 34.3, platelets 260, BUN 6.5, creatinine 0.4. Liver enzymes normal. Urinalysis: Trace leukocyte esterase. PHYSICAL EXAMINATION: General: On exam, she is awake and responsive in no acute distress. Vital Signs: Temperature 98.7, blood pressure 107/66, pulse 87 and regular, respirations 18 per minute. HEENT: Sclerae anicteric. Heart: Sounds S1, S2. Lungs: Clear. Abdomen: Soft. Positive bowel sounds. There is left lower quadrant tenderness to palpation. No mass, rebound, or rigidity. Extremities: Negative for edema. IMPRESSION: 1. Proctocolitis, rule out infectious versus inflammatory etiology. 2. [id number] diabetes mellitus. 3. Leukocytosis. PLAN: Obtain cultures. Continue empiric Levaquin and Flagyl. GI evaluation and follow up. Thank you for the kind referral. MACARENA CARTER M.D. [id number]
[2019-07-27] MEDS: NITROFURANTOIN MACROCRYSTAL 50 MG CAPSULE (FP) PO SCH (01:22)
[2019-07-27] MEDS: ACETAMINOPHEN 325 MG TABLET (FP) PO PRN ×2 (05:56→17:47)
[2019-07-27] MEDS: INSULIN SLIDING SCALE (NOVOLOG) 1 VIAL SQ SCH ×4 (06:00→21:07)
[2019-07-27] MEDS: SODIUM CHLORIDE 1,000 ML IV SCH ×2 (07:00→16:00)
[2019-07-27] MEDS: ENOXAPARIN NA (PORCINE) 40 MG/0.4 ML DISP.SYRIN SQ SCH (09:15)
[2019-07-27] MEDS: POLYETHYLENE GLYCOL 3350 119 GM BTL PO SCH (09:16)
--- NOTE | 2019-07-27 12:20 | PN ---
Physical Exam: SUBJECTIVE: Patient seen and examined she is better and had low grade fever she is hungry and seen by id today and agree with plan of levaquin and flagyl. OBJECTIVE: Vital Signs Period Temp Pulse Resp BP Sys/Ochoa Pulse Ox Last 24 Hr 98.2 F-100.8 F 87-106 18-20 107-132/58-84 98-98 GENERAL: The patient is awake, alert, and fully oriented, in no acute distress. HEAD: Normal with no signs of trauma. EYES: PERRL, extraocular movements intact, sclera anicteric, conjunctiva clear. No ptosis. ENT: Ears normal, nares patent, oropharynx clear without exudates, moist mucous membranes. NECK: Trachea midline, full range of motion, supple. LUNGS: Breath sounds equal, clear to auscultation bilaterally, no wheezes, no crackles, no accessory muscle use. HEART: Regular rate and rhythm, S1, S2 without murmur, rub or gallop. ABDOMEN: Soft,tender, nondistended, normoactive bowel sounds, no guarding, no rebound, no hepatosplenomegaly, no masses. EXTREMITIES: 2+ pulses, warm, well-perfused, no edema. NEUROLOGICAL: Cranial nerves II through XII grossly intact. Normal speech, gait not observed. Laboratory Results - last 24 hr 07/26/19 07/26/19 07/27/19 17:22 20:36 05:39 POC Glucometer 171 205 178 07/27/19 12:07 POC Glucometer 157 Active Medications Generic Name Dose Route Start Last Admin Trade Name Freq PRN Reason Stop Dose Admin Acetaminophen 650 mg 07/26/19 01:53 07/27/19 05:56 Tylenol - PO 650 mg Q4H PRN Administration PAIN LEVEL 6-10 Docusate Sodium 100 mg 07/26/19 03:03 07/26/19 09:11 Colace - PO 100 mg BID PRN Administration CONSTIPATION Enoxaparin Sodium 40 mg 07/26/19 10:00 07/27/19 09:15 Lovenox - SQ 40 mg DAILY LATA Administration Metronidazole 500 mg in 100 mls @ 100 mls/hr 07/26/19 18:00 07/27/19 09:15 Flagyl 500mg Premixed Ivpb - IVPB 100 mls/hr Q8H-IV LATA Administration Levofloxacin 500 mg in 100 mls @ 100 mls/hr 07/27/19 10:00 07/27/19 09:15 Levaquin 500 Mg Premixed Ivpb - IVPB 100 mls/hr DAILY LATA Administration Protocol Sodium Chloride 1,000 mls @ 200 mls/hr 07/26/19 13:22 07/26/19 13:53 Normal Saline - IV 07/28/19 06:59 200 mls/hr ASDIR LATA Administration Insulin Aspart 1 vial 07/26/19 07:00 07/27/19 12:12 Novolog Vial Sliding Scale - SQ Not Given ACHS LATA Protocol Nitrofurantoin Macrocrystals 100 mg 07/25/19 23:45 07/27/19 01:22 Macrodantin - PO 100 mg ONCE LATA Administration Polyethylene Glycol 17 gm 07/26/19 10:00 07/27/19 09:16 Miralax (For Daily Use) - PO 17 gm DAILY LATA Administration ASSESSMENT/PLAN: Patient is a 48 y/o female with a history of NIDDM and HLD who presented for abdominal pain. #abdominal pain 2/2 to colitis - Colitis seen on CT scan, -continue Levofloxacin and Flagyl - npo, bowel rest for now - will continue NS fluids seen by sena glover gi #hyperglycemia - patient uncontrolled on home regimen - BGM q6h - SS ACHS - 8 units regular insulin given 1 time - senior genetic counselor on adherence to medication - f/u A1C - patient not acidotic #HLD - confirm home medication and continue statin #DVT ppx - Lovenox 40 sq daily FEN - NS - NPO Visit type - Emergency Visit Emergency Visit: Yes ED Registration Date: 07/26/19 Care time: The patient presented to the Emergency Department on the above date and was hospitalized for further evaluation of their emergent condition. - New Patient This patient is new to me today: Yes Date on this admission: 07/27/19 - Critical Care Critical Care patient: No - Discharge Referral Referred to [facility] No
--- NOTE | 2019-07-27 12:35 | PN.GI ---
GI Progress Note Subjective: had minimal bowel movement, no rectal bleeding, abdominal pain resolving - Objective Vital Signs: Vital Signs Temperature 98.2 F 07/27/19 10:00 Pulse Rate 88 07/27/19 10:00 Respiratory Rate 18 07/27/19 10:00 Blood Pressure 113/67 07/27/19 10:00 O2 Sat by Pulse Oximetry (%) 98 07/27/19 09:00 Constitutional: Obese (--mild) Eyes: Yes: Conjunctiva Clear HENT: Yes: Atraumatic Neck: Yes: Supple Cardiovascular: Yes: Regular Rate and Rhythm Respiratory: Yes: CTA Bilaterally ...Palpate: Yes: Soft, Tenderness (--mild llq). No: Firm/Rigid, Guarding, Splenomegaly Labs: CBC, BMP 07/26/19 07:10 07/26/19 07:10 INR, PTT INR 1.16 (0.83-1.09) H 07/26/19 00:51 Problem List - Problems (1) Ischemic colitis Assessment/Plan: resolving R> continue IV hydration IV antibiotics clear liquids advance diet will colonoscopy in [address] Rocha to assume care tomorrow Code(s): K55.9 - VASCULAR DISORDER OF INTESTINE, UNSPECIFIED
[2019-07-27] MEDS ORDERED: INSULIN (NOVOLOG) ASPART 100 UNITS/ML 10ML VIAL ONE ×2 (18:15→20:59)
[2019-07-28] MEDS: ACETAMINOPHEN 325 MG TABLET (FP) PO PRN ×4 (05:48→21:03)
[2019-07-28] MEDS: INSULIN SLIDING SCALE (NOVOLOG) 1 VIAL SQ SCH ×4 (06:02→21:06)
[2019-07-28] MEDS ORDERED: LACTATED RINGERS SOLUTION 1,000 ML/1,000 ML INFUS.BAG IV SCH (08:45)
[2019-07-28 09:43] LABS: HEMATOCRIT 36.4 % (32.4-45.2); HEMOGLOBIN 12.1 GM/dL (10.7-15.3); MCH 27.2 pg (25.7-33.7); MCHC 33.2 g/dl (32.0-36.0); MEAN CELL VOLUME 81.9 fl (80-96); MEAN PLT VOLUME 8.1 fl (7.5-11.1); PLATELET COUNT 348 K/MM3 (134-434); RBC 4.44 M/mm3 (3.60-5.2); WHITE BLOOD COUNT 10.7 K/mm3 (4.0-10.0)
[2019-07-28 10:09] LABS: CALCIUM 7.8 mg/dL (8.5-10.1); CREATININE 0.4 mg/dL (0.55-1.3)
[2019-07-28 10:37] LABS: BLOOD UREA NITROGEN 2.3 mg/dL (7-18); POTASSIUM 2.8 mmol/L (3.5-5.1)
[2019-07-28] MEDS ORDERED: POTASSIUM CHLORIDE TABS 20 MEQ TABLET.ER (FP) PO ONE (11:00)
[2019-07-28] MEDS: ENOXAPARIN NA (PORCINE) 40 MG/0.4 ML DISP.SYRIN SQ SCH (11:11)
[2019-07-28] MEDS: POLYETHYLENE GLYCOL 3350 119 GM BTL PO SCH (11:15)
[2019-07-28] MEDS ORDERED: INSULIN (NOVOLOG) ASPART 100 UNITS/ML 10ML VIAL ONE ×3 (12:00→20:25)
[2019-07-28 12:04] LABS: PH,URINE 6.5 (5.0-8.0); URINE APPEARANCE CLEAR; URINE BILIRUBIN NEGATIVE (NEGATIVE); URINE COLOR YELLOW; URINE GLUCOSE (UA) 3+ (NEGATIVE); URINE KETONE 2+ (NEGATIVE); URINE LEUK ESTERASE NEGATIVE (NEGATIVE); URINE NITRITE NEGATIVE (NEGATIVE); URINE PROTEIN NEGATIVE (NEGATIVE)
[2019-07-28] MEDS: KCL 10 MEQ IVPB 10 MEQ/100 ML INFUS.BAG IVPB SCH ×3 (14:35→19:01)
[2019-07-28 15:20] VITALS: BMI 28.1
--- NOTE | 2019-07-28 23:42 | PN ---
Physical Exam: Seen and examined with resident team but no apparent note for this 24 hour period from resident. Therefore please count this as teaching documentation for 24 hours. Thank you. SUBJECTIVE: Patient seen and examined; no events reported to me from overnight. This is a 48 y/o female new to me today seen at bedside who complains of pain from K infusion but otherwise no complaints. OBJECTIVE: Vital Signs Period Temp Pulse Resp BP Sys/Ochoa Pulse Ox Last 24 Hr 98.1 F-100.7 F 83-94 18-20 117-141/74-80 GENERAL: The patient is awake, alert, and fully oriented, in no acute distress. HEAD: Normal with no signs of trauma. EYES: PERRL, extraocular movements intact, sclera anicteric, conjunctiva clear. No ptosis. ENT: Ears normal, nares patent, oropharynx clear without exudates, moist mucous membranes. NECK: Trachea midline, full range of motion, supple. LUNGS: Breath sounds equal, clear to auscultation bilaterally, no wheezes, no crackles, no accessory muscle use. HEART: Regular rate and rhythm, S1, S2 without murmur, rub or gallop. ABDOMEN: Soft, nontender, nondistended, normoactive bowel sounds, no guarding, no rebound, no hepatosplenomegaly, no masses. EXTREMITIES: 2+ pulses, warm, well-perfused, no edema. NEUROLOGICAL: Cranial nerves II through XII grossly intact. Normal speech, gait not observed. PSYCH: Normal mood, normal affect. SKIN: Warm, dry, normal turgor, no rashes or lesions noted Laboratory Results - last 24 hr 07/28/19 07/28/19 07/28/19 05:55 09:00 09:00 WBC RBC Hgb Hct MCV MCH MCHC RDW Plt Count MPV Sodium Potassium Chloride Carbon Dioxide Anion Gap BUN Creatinine Est GFR (CKD-EPI)AfAm Est GFR (CKD-EPI)NonAf POC Glucometer 185 Random Glucose Calcium Urine Color Yellow Urine Appearance Clear Urine pH 6.5 Ur Specific [place] 1.016 Urine Protein Negative Urine Glucose (UA) 3+ H Urine Ketones 2+ H Urine Blood Negative Urine Nitrite Negative Urine Bilirubin Negative Urine Urobilinogen 2.0 H Ur Leukocyte Esterase Negative Stool Occult Blood Negative 07/28/19 07/28/19 07/28/19 09:10 09:10 12:02 WBC 10.7 H RBC 4.44 Hgb 12.1 Hct 36.4 MCV 81.9 MCH 27.2 MCHC 33.2 RDW 13.0 Plt Count 348 D MPV 8.1 Sodium 139 Potassium 2.8 L* Chloride 105 Carbon Dioxide 24 Anion Gap 10 BUN 2.3 L* Creatinine 0.4 L Est GFR (CKD-EPI)AfAm 141.75 Est GFR (CKD-EPI)NonAf 122.30 POC Glucometer 219 Random Glucose 253 H Calcium 7.8 L Urine Color Urine Appearance Urine pH Ur Specific Cataldo Urine Protein Urine Glucose (UA) Urine Ketones Urine Blood Urine Nitrite Urine Bilirubin Urine Urobilinogen Ur Leukocyte Esterase Stool Occult Blood 07/28/19 07/28/19 17:18 21:05 WBC RBC Hgb Hct MCV MCH MCHC RDW Plt Count MPV Sodium Potassium Chloride Carbon Dioxide Anion Gap BUN Creatinine Est GFR (CKD-EPI)AfAm Est GFR (CKD-EPI)NonAf POC Glucometer 194 192 Random Glucose Calcium Urine Color Urine Appearance Urine pH Ur Specific Cataldo Urine Protein Urine Glucose (UA) Urine Ketones Urine Blood Urine Nitrite Urine Bilirubin Urine Urobilinogen Ur Leukocyte Esterase Stool Occult Blood Active Medications Generic Name Dose Route Start Last Admin Trade Name Freq PRN Reason Stop Dose Admin Acetaminophen 650 mg 07/26/19 01:53 07/28/19 21:03 Tylenol - PO 650 mg Q4H PRN Administration PAIN LEVEL 6-10 Docusate Sodium 100 mg 07/26/19 03:03 07/26/19 09:11 Colace - PO 100 mg BID PRN Administration CONSTIPATION Enoxaparin Sodium 40 mg 07/26/19 10:00 07/28/19 11:11 Lovenox - SQ 40 mg DAILY LATA Administration Metronidazole 500 mg in 100 mls @ 100 mls/hr 07/26/19 18:00 07/28/19 18:13 Flagyl 500mg Premixed Ivpb - IVPB 100 mls/hr Q8H-IV LATA Administration Levofloxacin 500 mg in 100 mls @ 100 mls/hr 07/27/19 10:00 07/28/19 12:01 Levaquin 500 Mg Premixed Ivpb - IVPB 100 mls/hr DAILY [facility] Administration Protocol Insulin Aspart 1 vial 07/26/19 07:00 07/28/19 21:06 Novolog Vial Sliding Scale - SQ 2 units ACHS [facility] Administration Protocol Polyethylene Glycol 17 gm 07/26/19 10:00 07/28/19 11:15 Miralax (For Daily Use) - PO Not Given DAILY [facility] ASSESSMENT/PLAN: Seen and examined; presents for proctosigmoid colitis and pending GI eval. May require inpt vs. outpt scope. Continue abx and monitor. She had some diarreha today but not qualifying for cdiff; if it persists with greater frequency can test. She interestingly does have some intermittent history of constipation alongside the diarrhea as an outpatient which rises suspicion for underlying IBS , but of course acute issues must be resolved. 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
--- NOTE | 2019-07-28 23:56 | PN ---
Progress Note (short form) - Note Progress Note: HPI: Pt with continued pain ongoing. Pt previously with constipation and now with diarrhea. Denies any fevers or chills, shortnes of breath, chest pain, palpitations. PE: GEN: NAD, awake, alert, oriented x3 HEENT: Nc/AT, AXEL, sclera anicteric, MMM LUNG: CTA b/l no wheezes on RA CARD: RRR no murmurs appreciated ABD: Soft, nondistended, tenderness in inferior hemisphere, no suprapubic mass ntoed, no guarding, no rebound, no psoas sign, normoactive BS EXT: No edema CBC, BMP 07/28/19 09:10 07/28/19 09:10 Hepatic Panel Total Bilirubin 0.6 mg/dL (0.2-1) 07/26/19 07:10 AST 10 U/L (15-37) L 07/26/19 07:10 ALT 11 U/L (13-61) L 07/26/19 07:10 Alkaline Phosphatase 104 U/L (45-117) 07/26/19 07:10 Albumin 2.6 g/dl (3.4-5.0) L 07/26/19 07:10 Microbiology 07/26/19 18:00 Blood - Peripheral Venous Blood Culture - Preliminary NO GROWTH OBTAINED AFTER 48 HOURS, INCUBATION TO CONTINUE FOR 3 DAYS. 07/26/19 17:30 Blood - Peripheral Venous Blood Culture - Preliminary NO GROWTH OBTAINED AFTER 48 HOURS, INCUBATION TO CONTINUE FOR 3 DAYS. 07/25/19 22:43 Urine - Urine Clean Catch Urine Culture - Final Contaminated: Please Repeat Active Medications Acetaminophen (Tylenol -) 650 mg PO Q4H PRN PRN Reason: PAIN LEVEL 6-10 Last Admin: 07/28/19 21:03 Dose: 650 mg Docusate Sodium (Colace -) 100 mg PO BID PRN PRN Reason: CONSTIPATION Last Admin: 07/26/19 09:11 Dose: 100 mg Enoxaparin Sodium (Lovenox -) 40 mg SQ DAILY [facility]ATA Last Admin: 07/28/19 11:11 Dose: 40 mg Metronidazole (Flagyl 500mg Premixed Ivpb -) 500 mg in 100 mls @ 100 mls/hr IVPB Q8H-IV LATA Last Admin: 07/28/19 18:13 Dose: 100 mls/hr Levofloxacin (Levaquin 500 Mg Premixed Ivpb -) 500 mg in 100 mls @ 100 mls/hr IVPB DAILY [facility]; Protocol Last Admin: 07/28/19 12:01 Dose: 100 mls/hr Insulin Aspart (Novolog Vial Sliding Scale -) 1 vial SQ ACHS [facility]; Protocol Last Admin: 07/28/19 21:06 Dose: 2 units Polyethylene Glycol (Miralax (For Daily Use) -) 17 gm PO DAILY [facility] Last Admin: 07/28/19 11:15 Dose: Not Given Assessment and Plan: Noninfectious colitis Type 2 DM Hypokalemia Hyperlipidemia history --Doubt ischemia colitis due to lack of downtrending H/H or bloody BM or clear triggers --Likely noninfectious colitis --Pelvic U/S ordered for adnexal cyst assessment --Continue Flagyl and Levaquin --Appreciate ID recommendations --Hyperglycemic episodes noted: pt with sliding scale currently, however may add long-acting depending on 24hour insulin requirements --A1c for tomorrow --Given diarrhea will hold colace and Miralax --Can add Bacid due to antibiotic usage FEN: Fluids: PO encouraged Electrolyte abnormalities: Hypokalemia; repleted Kdur 40mEq x1 with KCl 10mEq bags x3 Nutrition: Clear liquid diet changed to diabetic clear liquid PPX: DVT - Lovenox SQ daily GI - Not indicated Dispo: Continue to monitor Case discussed with Dr. Stephanie Mello, DO - IM PGY-3
[2019-07-29] MEDS: ACETAMINOPHEN 325 MG TABLET (FP) PO PRN ×2 (04:26→15:31)
[2019-07-29] MEDS: INSULIN SLIDING SCALE (NOVOLOG) 1 VIAL SQ SCH ×4 (06:13→22:00)
[2019-07-29 08:13] LABS: BASO % 0.5 % (0-2.0); EOS % 0.3 % (0-4.5); HEMATOCRIT 35.7 % (32.4-45.2); HEMOGLOBIN 12.1 GM/dL (10.7-15.3); LYMPH % 13.7 % (8-40); MCH 27.3 pg (25.7-33.7); MCHC 33.7 g/dl (32.0-36.0); MEAN CELL VOLUME 80.9 fl (80-96); MEAN PLT VOLUME 7.8 fl (7.5-11.1); MONO % 5.5 % (3.8-10.2); PLATELET COUNT 430 K/MM3 (134-434); RBC 4.42 M/mm3 (3.60-5.2); RDW 12.9 % (11.6-15.6); WHITE BLOOD COUNT 9.1 K/mm3 (4.0-10.0)
[2019-07-29 08:49] LABS: ALBUMIN 2.2 g/dl (3.4-5.0); BILIRUBIN,TOTAL 0.6 mg/dL (0.2-1); CALCIUM 8.1 mg/dL (8.5-10.1); CREATININE 0.4 mg/dL (0.55-1.3); MAGNESIUM 1.9 mg/dL (1.8-2.4); POTASSIUM 3.4 mmol/L (3.5-5.1); TOT PROT 6.2 g/dl (6.4-8.2)
[2019-07-29 09:03] LABS: BLOOD UREA NITROGEN 1.8 mg/dL (7-18)
[2019-07-29] MEDS: POLYETHYLENE GLYCOL 3350 119 GM BTL PO SCH (09:35)
[2019-07-29] MEDS: LACTOBACILLUS ACIDOPHILUS 1 TABLET PO SCH (09:46)
[2019-07-29] MEDS: ENOXAPARIN NA (PORCINE) 40 MG/0.4 ML DISP.SYRIN SQ SCH (09:46)
[2019-07-29] MEDS ORDERED: INSULIN (NOVOLOG) ASPART 100 UNITS/ML 10ML VIAL ONE ×2 (11:36→21:06)
[2019-07-29] MEDS: POTASSIUM CHLORIDE TABS 20 MEQ TABLET.ER (FP) PO SCH ×2 (11:45→22:00)
--- NOTE | 2019-07-29 12:15 | PN ---
Progress Note (short form) - Note Progress Note: HPI: Pt with continued pain, however improved compared to yesterday. No episodes of vomiting this AM. Pt reports 4-5 episodes of waterry diarrhea without blood or mucus at this time. No fevers/chills, SOB, CP, palpitations, n/ v. PE: GEN: NAD, awake, alert, oriented x3 HEENT: Nc/AT, AXEL, sclera anicteric, MMM LUNG: CTA b/l no wheezes on RA CARD: RRR no murmurs appreciated ABD: Soft, nondistended, tenderness in LLQ>RLQ, no suprapubic mass noted, no guarding, no rebound, normoactive BS EXT: No edema CBC, BMP 07/29/19 07:40 07/29/19 07:40 Hepatic Panel Total Bilirubin 0.6 mg/dL (0.2-1) 07/29/19 07:40 AST 17 U/L (15-37) 07/29/19 07:40 ALT 8 U/L (13-61) L 07/29/19 07:40 Alkaline Phosphatase 134 U/L (45-117) H 07/29/19 07:40 Albumin 2.2 g/dl (3.4-5.0) L 07/29/19 07:40 Microbiology 07/26/19 18:00 Blood - Peripheral Venous Blood Culture - Preliminary NO GROWTH OBTAINED AFTER 72 HOURS, INCUBATION TO CONTINUE FOR 2 DAYS. 07/26/19 17:30 Blood - Peripheral Venous Blood Culture - Preliminary NO GROWTH OBTAINED AFTER 72 HOURS, INCUBATION TO CONTINUE FOR 2 DAYS. 07/28/19 09:20 Blood - Peripheral Venous Blood Culture - Preliminary NO GROWTH OBTAINED AFTER 24 HOURS, INCUBATION TO CONTINUE FOR 4 DAYS. 07/28/19 09:00 Urine - Urine Clean Catch Urine Culture - Final NO GROWTH OBTAINED 07/28/19 09:10 Blood - Peripheral Venous Blood Culture - Preliminary Pending Organism 07/25/19 22:43 Urine - Urine Clean Catch Urine Culture - Final Contaminated: Please Repeat Active Medications Acetaminophen (Tylenol -) 650 mg PO Q4H PRN PRN Reason: PAIN LEVEL 6-10 Last Admin: 07/28/19 21:03 Dose: 650 mg Docusate Sodium (Colace -) 100 mg PO BID PRN PRN Reason: CONSTIPATION Last Admin: 07/26/19 09:11 Dose: 100 mg Enoxaparin Sodium (Lovenox -) 40 mg SQ DAILY [facility] Last Admin: 07/28/19 11:11 Dose: 40 mg Metronidazole (Flagyl 500mg Premixed Ivpb -) 500 mg in 100 mls @ 100 mls/hr IVPB Q8H-IV [facility] Last Admin: 07/28/19 18:13 Dose: 100 mls/hr Levofloxacin (Levaquin 500 Mg Premixed Ivpb -) 500 mg in 100 mls @ 100 mls/hr IVPB DAILY [facility]; Protocol Last Admin: 07/28/19 12:01 Dose: 100 mls/hr Insulin Aspart (Novolog Vial Sliding Scale -) 1 vial SQ ACHS [facility]; Protocol Last Admin: 07/28/19 21:06 Dose: 2 units Polyethylene Glycol (Miralax (For Daily Use) -) 17 gm PO DAILY [facility] Last Admin: 07/28/19 11:15 Dose: Not Given Assessment and Plan: Noninfectious colitis Type 2 DM Hypokalemia Hyperlipidemia history --Doubt ischemia colitis due to lack of downtrending H/H or bloody BM or clear triggers --Likely noninfectious colitis --Pt to go for Flex Sigmoidoscopy tomorrow with GI --NPO at midnight --Fleet enema --Holding any chemical AC --Pelvic U/S reviewed; f/u with Pelvic MRI ordered --TRAVEL PHYSICAL THERAPIST consulted given size of cyst --Continue Flagyl and Levaquin --Appreciate ID recommendations --Holding laxatives at this point --Bacid due to ABX use --Hyperglycemic episodes noted: pt with sliding scale currently, however may add long-acting depending on 24hour insulin requirements --A1c 11.0%, however glucose levels controlled with diabetic clears currently; continue BGM ACHS FEN: Fluids: PO encouraged Electrolyte abnormalities: Hypokalemia; repleted Kdur 40mEq x2 doses (1000; 2200) Nutrition: diabetic clear liquid; NPO after midnight PPX: DVT - Holding PPX for procedure GI - Not indicated Dispo: Continue to monitor Case discussed with Dr. Stephanie Mello, DO - IM PGY-3 <Colton Mello - Last Filed: 07/29/19 23:30> - Note Progress Note: Seen and examined; agree with resdient documentation above aside from as supplemented by myself. Independently verified all historical and PE findings. Discussed at length with resident team and verified lab, imaging, and vital sign documentation. Patient is seen and examined and all questions answered. Pain was completely resolved yesterday when I saw her later on but is now noted to be mild and present 10 sys ROS done and negative aside from HPI GENERAL: The patient is awake, alert, and fully oriented, in no acute distress. HEAD: Normal with no signs of trauma. EYES: PERRL, extraocular movements intact, sclera anicteric, conjunctiva clear. No ptosis. ENT: Ears normal, nares patent, oropharynx clear without exudates, moist mucous membranes. NECK: Trachea midline, full range of motion, supple. LUNGS: Breath sounds equal, clear to auscultation bilaterally, no wheezes, no crackles, no accessory muscle use. HEART: Regular rate and rhythm, S1, S2 without murmur, rub or gallop. ABDOMEN: Soft, mild lower abd, nondistended, normoactive bowel sounds, no guarding, no rebound, no hepatosplenomegaly, no masses. EXTREMITIES: 2+ pulses, warm, well-perfused, no edema. NEUROLOGICAL: Cranial nerves II through XII grossly intact. Normal speech, gait not observed. PSYCH: Normal mood, normal affect. SKIN: Warm, dry, normal turgor, no rashes or lesions noted A/P: Agree with problem list per resident documentation. Her problems include: -Protosigmoidcolitis of uncertain etiology, pending scope per GI. 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 Continue to follow BMP. No indication of underlying RTA, etc. -Hyperlipidemia history -Mild elev. 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
[2019-07-29] MEDS ORDERED: MORPHINE SULFATE 2 MG/ML VIAL IVPUSH ONE (15:43)
--- NOTE | 2019-07-29 17:58 | PN.GI ---
GI Progress Note Subjective: Complains of lower abdominal pain No diarrhea now, described it previously No rectal bleeding - Objective Vital Signs: Vital Signs Temperature 98.1 F 07/29/19 16:20 Pulse Rate 81 07/29/19 16:20 Respiratory Rate 18 07/29/19 16:20 Blood Pressure 136/77 07/29/19 16:20 O2 Sat by Pulse Oximetry (%) 95 07/29/19 09:00 Constitutional: Calm Eyes: No: Sclera Icterus Cardiovascular: Yes: Regular Rate and Rhythm. No: Murmur Respiratory: Yes: CTA Bilaterally Gastrointestinal Inspection: No: Distention ...Auscultate: Yes: Normoactive Bowel Sounds ...Palpate: Yes: Soft. No: Splenomegaly, Tenderness ...Percussion: No: Tympanitic Edema: No (No LE edema) Neurological: Yes: Alert Labs: CBC, BMP 07/29/19 07:40 07/29/19 07:40 INR, PTT INR 1.16 (0.83-1.09) H 07/26/19 00:51 Problem List - Problems (1) Colitis Assessment/Plan: Proctosigmoiditis described on CT scan with continued abdominopelvic pain. Plan for flex sig tomorrow for further evaluation. Fleet enema in AM. Code(s): K52.9 - NONINFECTIVE GASTROENTERITIS AND COLITIS, UNSPECIFIED
[2019-07-30] MEDS: ACETAMINOPHEN 325 MG TABLET (FP) PO PRN ×3 (01:28→18:27)
[2019-07-30] MEDS: INSULIN SLIDING SCALE (NOVOLOG) 1 VIAL SQ SCH ×4 (06:36→21:42)
--- NOTE | 2019-07-30 07:48 | PN ---
Progress Note (short form) - Note Progress Note: HPI: No events overnight. Continued tenderness but improving. No other complaints today. Pt will be going to endoscopy for flex. sigmoidoscopy PE: GEN: NAD, awake, alert, oriented x3 HEENT: Nc/AT, AXEL, sclera anicteric, MMM LUNG: CTA b/l no wheezes on RA CARD: RRR no murmurs appreciated ABD: Soft, nondistended, tenderness in LLQ>RLQ (improving), no suprapubic mass noted, no guarding, no rebound, normoactive BS EXT: No edema Microbiology 07/26/19 18:00 Blood - Peripheral Venous Blood Culture - Preliminary NO GROWTH OBTAINED AFTER 72 HOURS, INCUBATION TO CONTINUE FOR 2 DAYS. 07/26/19 17:30 Blood - Peripheral Venous Blood Culture - Preliminary NO GROWTH OBTAINED AFTER 72 HOURS, INCUBATION TO CONTINUE FOR 2 DAYS. 07/28/19 09:20 Blood - Peripheral Venous Blood Culture - Preliminary NO GROWTH OBTAINED AFTER 24 HOURS, INCUBATION TO CONTINUE FOR 4 DAYS. 07/28/19 09:00 Urine - Urine Clean Catch Urine Culture - Final NO GROWTH OBTAINED 07/28/19 09:10 Blood - Peripheral Venous Blood Culture - Preliminary Pending Organism 07/25/19 22:43 Urine - Urine Clean Catch Urine Culture - Final Contaminated: Please Repeat Medications Acetaminophen (Tylenol -) 650 mg PO Q4H PRN PRN Reason: PAIN LEVEL 6-10 Last Admin: 07/30/19 01:28 Dose: 650 mg Metronidazole (Flagyl 500mg Premixed Ivpb -) 500 mg in 100 mls @ 100 mls/hr IVPB Q8H-IV [facility] Last Admin: 07/30/19 01:29 Dose: 100 mls/hr Levofloxacin (Levaquin 500 Mg Premixed Ivpb -) 500 mg in 100 mls @ 100 mls/hr IVPB DAILY [facility]; Protocol Last Admin: 07/29/19 11:45 Dose: 100 mls/hr Insulin Aspart (Novolog Vial Sliding Scale -) 1 vial SQ ACHS [facility]; Protocol Last Admin: 07/30/19 06:36 Dose: 2 units Lactobacillus Acidophilus (Bacid -) 1 tab PO DAILY [facility] Last Admin: 07/29/19 09:46 Dose: 1 tab Assessment and Plan: Noninfectious colitis Type 2 DM Hypokalemia Hyperlipidemia history --Pt to go for Flex Sigmoidoscopy today with GI --NPO currently --Fleet enema to be given --Holding any chemical AC --Pelvic U/S reviewed; f/u with Pelvic MRI ordered --PHYSIOGNOMIST consulted given size of cyst --Continue Flagyl and Levaquin --Appreciate ID recommendations --Continue holding any laxatives --Bacid due to ABX use --Hyperglycemic episodes noted: pt with sliding scale currently, however may add long-acting depending on 24hour insulin requirements --A1c 11.0%, however glucose levels controlled with diabetic clears currently; continue BGM ACHS FEN: Fluids: PO encouraged Electrolyte abnormalities: Awaiting labs for repletion Nutrition: Npo until procedure --> diabetic clears afterwards PPX: DVT - Holding PPX for procedure GI - Not indicated Dispo: Continue to monitor Case discussed with Dr. Stephanie Mello, DO - IM PGY-3 <Colton Mello - Last Filed: 07/30/19 08:17> - Note Progress Note: Seen and examined; agree with resdient documentation above aside from as supplemented by myself. Independently verified all historical and PE findings. Discussed at length with resident team and verified lab, imaging, and vital sign documentation. Patient is seen and examined and all questions answered. No new issues; no further pain or diarrhea. Abdominal pain improved and states that she has an appetitie. Flex sig this afternoon. Bcx likely contaminant 10 sys ROS done and negative aside from HPI GENERAL: The patient is awake, alert, and fully oriented, in no acute distress. HEAD: Normal with no signs of trauma. EYES: PERRL, extraocular movements intact, sclera anicteric, conjunctiva clear. No ptosis. ENT: Ears normal, nares patent, oropharynx clear without exudates, moist mucous membranes. NECK: Trachea midline, full range of motion, supple. LUNGS: Breath sounds equal, clear to auscultation bilaterally, no wheezes, no crackles, no accessory muscle use. HEART: Regular rate and rhythm, S1, S2 without murmur, rub or gallop. ABDOMEN: Soft, mild lower abd, nondistended, normoactive bowel sounds, no guarding, no rebound, no hepatosplenomegaly, no masses. EXTREMITIES: 2+ pulses, warm, well-perfused, no edema. NEUROLOGICAL: Cranial nerves II through XII grossly intact. Normal speech, gait not observed. PSYCH: Normal mood, normal affect. SKIN: Warm, dry, normal turgor, no rashes or lesions noted A/P: Agree with problem list per resident documentation. Her problems include: -Protosigmoidcolitis of uncertain etiology, GI reports bogginess in distal sigmoid representing likely prep related or resolving colitis with mild diverticulosis. Monitor for postoperative complications -Pelvic mass pending further imaging, denies FH of RAILROAD CROSSING [employer]OTECTION MAINTAINER cancers; per RAILROAD CROSSING PROTECTION MAINTAINER FU OP. Can get MRI OP; cancelling study. -Type 2 DM with glucosuria; close OP followup and OP podiatry referral -Hypokalemia, repleted. Continue to follow BMP. -Hyperlipidemia history -Mild elev. 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 Full Code <Sanjeev Brown - Last Filed: 07/31/19 11:19>
[2019-07-30 08:28] LABS: BASO % 0.3 % (0-2.0); EOS % 0.2 % (0-4.5); HEMATOCRIT 37.7 % (32.4-45.2); HEMOGLOBIN 12.4 GM/dL (10.7-15.3); LYMPH % 8.7 % (8-40); MCH 26.7 pg (25.7-33.7); MEAN CELL VOLUME 80.8 fl (80-96); MEAN PLT VOLUME 7.8 fl (7.5-11.1); MONO % 5.9 % (3.8-10.2); NEUT % 84.9 % (42.8-82.8); PLATELET COUNT 459 K/MM3 (134-434); RBC 4.67 M/mm3 (3.60-5.2); RDW 12.6 % (11.6-15.6); WHITE BLOOD COUNT 9.9 K/mm3 (4.0-10.0)
[2019-07-30 09:06] LABS: ALBUMIN 2.2 g/dl (3.4-5.0); BILIRUBIN,TOTAL 0.4 mg/dL (0.2-1); CALCIUM 8.1 mg/dL (8.5-10.1); CREATININE 0.3 mg/dL (0.55-1.3); POTASSIUM 3.1 mmol/L (3.5-5.1); TOT PROT 6.5 g/dl (6.4-8.2)
[2019-07-30 09:09] LABS: INR 1.25 (0.83-1.09); PROTHROMBIN TIME (PATIENT) 14.8 SEC (9.7-13.0)
[2019-07-30 09:15] LABS: BLOOD UREA NITROGEN 2.2 mg/dL (7-18)
[2019-07-30] MEDS: KCL 10 MEQ IVPB 10 MEQ/100 ML INFUS.BAG IVPB SCH ×3 (09:39→14:37)
[2019-07-30] MEDS: LACTOBACILLUS ACIDOPHILUS 1 TABLET PO SCH (09:39)
--- NOTE | 2019-07-30 12:08 | PN ---
Progress Note (short form) - Note Progress Note: MENDER HAND i was there to see patient, she was in ENDO , chart and images reviewed , no acute problem with her ovarian cyst , should be evaluated by network controller onco as out patient , i try to see her tomorrow . she can be referred to network controller onco Dr Marian Guy at [facility]
--- NOTE | 2019-07-30 18:03 | PN ---
Progress Note (short form) - Note Progress Note: Brief GI note Flexible sigmoidoscopy performed today revealing mildly boggy edematous mucosa at distal sigmoid colon, biopsies taken, otherwise unremarkable. Rectum appeared normal. See endoscopy report for details. Recommendations: -Resume clear liquid diet -Follow up pathology results -Gynecology follow up for ovarian cyst -Pt will require GI follow up for full colonoscopy
[2019-07-31] MEDS: ACETAMINOPHEN 325 MG TABLET (FP) PO PRN ×3 (01:41→17:39)
[2019-07-31] MEDS: INSULIN SLIDING SCALE (NOVOLOG) 1 VIAL SQ SCH ×4 (06:52→21:11)
[2019-07-31] MEDS: LACTOBACILLUS ACIDOPHILUS 1 TABLET PO SCH (09:03)
[2019-07-31 09:18] LABS: HEMATOCRIT 37.5 % (32.4-45.2); HEMOGLOBIN 12.8 GM/dL (10.7-15.3); MCH 27.4 pg (25.7-33.7); MCHC 34.2 g/dl (32.0-36.0); MEAN PLT VOLUME 7.3 fl (7.5-11.1); PLATELET COUNT 482 K/MM3 (134-434); RBC 4.68 M/mm3 (3.60-5.2); RDW 12.8 % (11.6-15.6); WHITE BLOOD COUNT 9.2 K/mm3 (4.0-10.0)
[2019-07-31 10:21] LABS: CALCIUM 8.6 mg/dL (8.5-10.1); CREATININE 0.4 mg/dL (0.55-1.3); MAGNESIUM 2.1 mg/dL (1.8-2.4); POTASSIUM 3.2 mmol/L (3.5-5.1)
[2019-07-31 10:36] LABS: BLOOD UREA NITROGEN 2.8 mg/dL (7-18)
[2019-07-31] MEDS: POTASSIUM CHLORIDE TABS 20 MEQ TABLET.ER (FP) PO SCH ×2 (11:49→21:08)
--- NOTE | 2019-07-31 15:41 | PN.GI ---
GI Progress Note Subjective: No acute events Tolerating PO and abdominal pain much improved Flex sig revealing distal sigmoid erythema and otherwise unrevealing - Objective Vital Signs: Vital Signs Temperature 98.1 F 07/31/19 14:00 Pulse Rate 89 07/31/19 14:00 Respiratory Rate 18 07/31/19 14:00 Blood Pressure 106/72 07/31/19 14:00 O2 Sat by Pulse Oximetry (%) 96 07/30/19 21:00 Constitutional: Calm Eyes: No: Sclera Icterus Cardiovascular: Yes: Regular Rate and Rhythm Respiratory: Yes: CTA Bilaterally Gastrointestinal Inspection: No: Distention ...Auscultate: Yes: Normoactive Bowel Sounds ...Palpate: Yes: Soft. No: Hepatomegaly, Splenomegaly, Tenderness ...Percussion: No: Tympanitic Edema: No (No LE edema) Labs: CBC, BMP 07/31/19 08:25 07/31/19 08:25 INR, PTT INR 1.25 (0.83-1.09) H 07/30/19 07:50 Problem List - Problems (1) Colitis Assessment/Plan: Clinically much improved Tolerating PO Outpatient follow-up for reevaluation and to discuss full colonoscopy Code(s): K52.9 - NONINFECTIVE GASTROENTERITIS AND COLITIS, UNSPECIFIED
[2019-07-31] MEDS ORDERED: INSULIN (NOVOLOG) ASPART 100 UNITS/ML 10ML VIAL ONE (21:11)
--- NOTE | 2019-07-31 23:33 | CONS ---
DATE OF CONSULTATION: 07/31/2019 REASON FOR CONSULTATION: Abdominal pain and ovarian cyst. HISTORY OF PRESENT ILLNESS: This patient is a 48-year-old female 4, para 4, was admitted with abdominal pain and colitis. An incidental finding on the CT scan was a right adnexal cyst which she had a followup sonogram which showed a fibroid uterus with normal thickness of the endometrium and there is a large right mass-like density, 9.5 x 5.3 cm hyperechoic foci was found. Patient had colonoscopy, result of pathology still pending. PHYSICAL EXAMINATION: General: Patient awake, alert. Abdomen: Obese. No masses were palpable. Mild suprapubic tenderness with deep palpation. No rebound, no guarding. Pelvic: External genitalia to be normal. Vagina was normal. Cervix was multiparous cervix. No gross lesion. Uterus and adnexa difficult to palpate secondary to obesity and inflammatory process of colon. IMPRESSION: Right ovarian cyst. Advise patient to follow up with gynecology oncology upon discharge from the hospital for further workup. Advise CA125 and also advised to see Dr. Marian Guy, gynecology oncologist, at [facility]. Important followup discussed with patient. RYLIE RUBIO M.D. SR/[id number]
[2019-08-01] MEDS: ACETAMINOPHEN 325 MG TABLET (FP) PO PRN ×2 (00:54→09:08)
[2019-08-01 05:42] VITALS: TEMP 97.7
[2019-08-01] MEDS: INSULIN SLIDING SCALE (NOVOLOG) 1 VIAL SQ SCH ×2 (06:03→11:21)
--- NOTE | 2019-08-01 07:09 | PN ---
Progress Note (short form) - Note Progress Note: HPI: No events overnight. Continued tenderness but improving. No other complaints today. PE: GEN: NAD, awake, alert, oriented x3 HEENT: Nc/AT, AXEL, sclera anicteric, MMM LUNG: CTA b/l no wheezes on RA CARD: RRR no murmurs appreciated ABD: Soft, nondistended, tenderness in LLQ>RLQ (improving), no suprapubic mass noted, no guarding, no rebound, normoactive BS EXT: No edema Microbiology 07/26/19 18:00 Blood - Peripheral Venous Blood Culture - Preliminary NO GROWTH OBTAINED AFTER 72 HOURS, INCUBATION TO CONTINUE FOR 2 DAYS. 07/26/19 17:30 Blood - Peripheral Venous Blood Culture - Preliminary NO GROWTH OBTAINED AFTER 72 HOURS, INCUBATION TO CONTINUE FOR 2 DAYS. 07/28/19 09:20 Blood - Peripheral Venous Blood Culture - Preliminary NO GROWTH OBTAINED AFTER 24 HOURS, INCUBATION TO CONTINUE FOR 4 DAYS. 07/28/19 09:00 Urine - Urine Clean Catch Urine Culture - Final NO GROWTH OBTAINED 07/28/19 09:10 Blood - Peripheral Venous Blood Culture - Preliminary Pending Organism 07/25/19 22:43 Urine - Urine Clean Catch Urine Culture - Final Contaminated: Please Repeat Medications Acetaminophen (Tylenol -) 650 mg PO Q4H PRN PRN Reason: PAIN LEVEL 6-10 Last Admin: 07/30/19 01:28 Dose: 650 mg Metronidazole (Flagyl 500mg Premixed Ivpb -) 500 mg in 100 mls @ 100 mls/hr IVPB Q8H-IV LATA Last Admin: 07/30/19 01:29 Dose: 100 mls/hr Levofloxacin (Levaquin 500 Mg Premixed Ivpb -) 500 mg in 100 mls @ 100 mls/hr IVPB DAILY LATA; Protocol Last Admin: 07/29/19 11:45 Dose: 100 mls/hr Insulin Aspart (Novolog Vial Sliding Scale -) 1 vial SQ ACHS LATA; Protocol Last Admin: 07/30/19 06:36 Dose: 2 units Lactobacillus Acidophilus (Bacid -) 1 tab PO DAILY LATA Last Admin: 07/29/19 09:46 Dose: 1 tab Assessment and Plan: Noninfectious colitis Type 2 DM Hypokalemia Hyperlipidemia history --Flex sigmoidoscpy unrevealing --Unfortunately pt had fever --Repeat blood Cx --will need to be afebril for 12-24hrs before d/c --Pelvic U/S reviewed; f/u with Pelvic MRI ordered --FULL TIME BABYSITTER consulted: follow outpatient --Continue Flagyl and Levaquin --Appreciate ID recommendations --Continue holding any laxatives --Bacid due to ABX use --Hyperglycemic episodes noted: pt with sliding scale currently, however may add long-acting depending on 24hour insulin requirements --A1c 11.0%, however glucose levels controlled with diabetic clears currently; continue BGM ACHS FEN: Fluids: PO encouraged Electrolyte abnormalities: Awaiting labs for repletion Nutrition: advanced to regular diabetic diet PPX: DVT - SCDs GI - Not indicated Dispo: Continue to monitor Case discussed with Dr. Stephanie Mello, DO - IM PGY-3
--- NOTE | 2019-08-01 07:12 | PN ---
Progress Note (short form) - Note Progress Note: HPI: No events overnight. Pt afebrile. Pt curious about long-term plan. Tolerating food Vital Signs Temperature 97.7 F 08/01/19 05:40 Pulse Rate 69 08/01/19 05:40 Respiratory Rate 18 08/01/19 05:40 Blood Pressure 144/76 08/01/19 05:40 O2 Sat by Pulse Oximetry (%) 96 07/30/19 21:00 PE: GEN: NAD, awake, alert, oriented x3 HEENT: Nc/AT, AXEL, sclera anicteric, MMM LUNG: CTA b/l no wheezes on RA CARD: RRR no murmurs appreciated ABD: Soft, nondistended, minimal tenderness, no suprapubic mass noted, no guarding, no rebound, normoactive BS EXT: No edema CBC, BMP 07/31/19 08:25 07/31/19 08:25 Microbiology 07/26/19 18:00 Blood - Peripheral Venous Blood Culture - Final NO GROWTH AFTER 5 DAYS INCUBATION 07/26/19 17:30 Blood - Peripheral Venous Blood Culture - Final NO GROWTH AFTER 5 DAYS INCUBATION 07/28/19 09:20 Blood - Peripheral Venous Blood Culture - Preliminary NO GROWTH OBTAINED AFTER 72 HOURS, INCUBATION TO CONTINUE FOR 2 DAYS. 07/30/19 06:45 Stool Clostridioides difficile Antigen - Final 07/30/19 06:45 Stool Clostridioides difficile Toxin Assay - Final 07/28/19 09:10 Blood - Peripheral Venous Blood Culture - Final Bacillus Species, Not Antracis 07/28/19 09:00 Urine - Urine Clean Catch Urine Culture - Final NO GROWTH OBTAINED 07/25/19 22:43 Urine - Urine Clean Catch Urine Culture - Final Contaminated: Please Repeat Active Medications Acetaminophen (Tylenol -) 650 mg PO Q4H PRN PRN Reason: PAIN LEVEL 6-10 Last Admin: 08/01/19 00:54 Dose: 650 mg Metronidazole (Flagyl 500mg Premixed Ivpb -) 500 mg in 100 mls @ 100 mls/hr IVPB Q8H-IV LATA Last Admin: 08/01/19 01:26 Dose: 100 mls/hr Levofloxacin (Levaquin 500 Mg Premixed Ivpb -) 500 mg in 100 mls @ 100 mls/hr IVPB DAILY LATA; Protocol Last Admin: 07/31/19 10:31 Dose: 100 mls/hr Insulin Aspart (Novolog Vial Sliding Scale -) 1 vial SQ ACHS LATA; Protocol Last Admin: 08/01/19 06:03 Dose: 2 units Lactobacillus Acidophilus (Bacid -) 1 tab PO DAILY LATA Last Admin: 07/31/19 09:03 Dose: 1 tab Assessment and Plan: Noninfectious colitis Type 2 DM Hypokalemia Hyperlipidemia history --Flex sigmoidoscpy unrevealing --Pt remains afebrile with resolving BCx --Will f/u prelim read and continue following post discharge for final --Pelvic U/S reviewed; f/u with Pelvic MRI ordered --EGG BREAKER consulted: follow outpatient --Continue Flagyl and Levaquin --Appreciate ID recommendations --Continue holding any laxatives --Bacid due to ABX use --Hyperglycemic episodes noted: pt with sliding scale currently, however may add long-acting depending on 24hour insulin requirements --A1c 11.0%, however glucose levels controlled with diabetic clears currently; continue BGM ACHS FEN: Fluids: PO encouraged Electrolyte abnormalities: Awaiting labs for repletion today Nutrition: advanced to regular diabetic diet PPX: DVT - SCDs GI - Not indicated Dispo: Continue to monitor Case discussed with Dr. Stephanie Mello, DO - IM PGY-3
--- NOTE | 2019-08-01 07:13 | DS ---
Physical Exam: SUBJECTIVE: Patient seen and examined OBJECTIVE: Vital Signs Period Temp Pulse Resp BP Sys/Ochoa Pulse Ox Last 24 Hr 97.7 F-100.3 F 69-89 18-20 106-145/65-81 PHYSICAL EXAM GENERAL: The patient is awake, alert, and fully oriented, in no acute distress. HEAD: Normal with no signs of trauma. EYES: PERRL, extraocular movements intact, sclera anicteric, conjunctiva clear. ENT: Ears normal, nares patent, oropharynx clear without exudates, moist mucous membranes. NECK: Trachea midline, full range of motion, supple. LUNGS: Breath sounds equal, clear to auscultation bilaterally, no wheezes, no crackles, no accessory muscle use. HEART: Regular rate and rhythm, S1, S2 without murmur, rub or gallop. ABDOMEN: Soft, nontender, nondistended, normoactive bowel sounds, no guarding, no rebound, no hepatosplenomegaly, no masses. EXTREMITIES: 2+ pulses, warm, well-perfused, no edema. NEUROLOGICAL: Cranial nerves II through XII grossly intact. Normal speech, gait not observed. PSYCH: Normal mood, normal affect. SKIN: Warm, dry, normal turgor, no rashes or lesions noted. LABS Laboratory Results - last 24 hr 07/31/19 07/31/19 07/31/19 08:25 08:25 11:25 WBC 9.2 RBC 4.68 Hgb 12.8 Hct 37.5 MCV 80.0 MCH 27.4 MCHC 34.2 RDW 12.8 Plt Count 482 H MPV 7.3 L Sodium 141 Potassium 3.2 L Chloride 101 Carbon Dioxide 30 Anion Gap 10 BUN 2.8 L* Creatinine 0.4 L Est GFR (CKD-EPI)AfAm 141.75 Est GFR (CKD-EPI)NonAf 122.30 POC Glucometer 198 Random Glucose 154 H Calcium 8.6 Magnesium 2.1 07/31/19 07/31/19 08/01/19 17:19 21:08 06:01 WBC RBC Hgb Hct MCV MCH MCHC RDW Plt Count MPV Sodium Potassium Chloride Carbon Dioxide Anion Gap BUN Creatinine Est GFR (CKD-EPI)AfAm Est GFR (CKD-EPI)NonAf POC Glucometer 228 295 189 Random Glucose Calcium Magnesium HOSPITAL COURSE: Date of Admission:07/26/19 Date of Discharge: 08/01/19 Discharge Summary Problems reviewed: Yes Reason For Visit: COLITIS, HYPERGLYCEMIA Current Active Problems Colitis (Acute) Hyperglycemia (Acute) Ischemic colitis (Acute) Condition: Stable - Instructions Diet, Activity, Other Instructions: 1gm BID Metformin Off Glipizide Referrals: Javier Persaud DO [Staff Physician] - Merle Parnell MD [Primary Care Provider] - - Home Medications Comprehensive Discharge Medication List: Ambulatory Orders Aspirin [ASA -] 81 mg PO DAILY tab.chew 09/20/17 Atorvastatin Ca [Lipitor] 40 mg PO HS #30 tablet 09/20/17 metFORMIN HCL [Metformin HCl] 500 mg PO BID 05/31/19 Glipizide 10 mg PO DAILY 07/26/19 - Discharge Referral Referred to [facility] No ATTENDING PHYSICIAN STATEMENT I saw and evaluated the patient. I reviewed the resident's note and discussed the case with the resident. I agree with the resident's findings and plan as documented. SUBJECTIVE: OBJECTIVE: ASSESSMENT AND PLAN:
[2019-08-01] MEDS: LACTOBACILLUS ACIDOPHILUS 1 TABLET PO SCH (09:08)
[2019-08-01] MEDS ORDERED: KETOROLAC TROMETHAMINE 30 MG/1 ML VIAL IVPUSH ONE (10:13)
[2019-08-01] MEDS ORDERED: INSULIN (NOVOLOG) ASPART 100 UNITS/ML 10ML VIAL ONE (11:20)
[2019-08-01 11:44] VITALS: BP 115/75; PULSE 71
--- NOTE | 2019-08-01 18:13 | PATH ---
Surgical Pathology Report Patient Name: AMY CORRALES Med. Rec. #: [id number] /Age/Gender: 1970 (Age: 48) / F Account: [id number] Location: [facility] MED/SURG Taken: 07/30/2019 Received: 07/31/2019 Reported: 08/01/2019 Physicians: MD Sanjeev Boyd MD Specimen(s) Received A: COLON, LEFT B: COLON, 20 CM C: RECTUM Clinical History Right abdominal flank pain Final Diagnosis A. COLON, LEFT, BIOPSY: COLONIC MUCOSA WITH MILD INCREASE IN ACUTE AND CHRONIC INFLAMMATORY INFILTRATE WITHIN LAMINA PROPRIA AND MILD SUPERFICIAL HYPERPLASTIC FEATURES. B. COLON, 20 CM, BIOPSY: COLONIC MUCOSA WITH MILD ACUTE COLITIS. SEE COMMENT. C. RECTUM, BIOPSY: COLONIC MUCOSA WITH FOCAL EXTRAVASATION OF RED BLOOD CELLS WITHIN LAMINA PROPRIA. Comment: Findings are non-specific. Differential diagnosis includes infection, medication, and possibility of early inflammatory bowel disease. Suggest clinical/endoscopic correlation. Electronically Signed Parul Russ M.D. Gross Description A. Received in formalin, labeled "biopsy left colon" are 3 mccord, irregular portions of soft tissue ranging from 0.2-0.5 cm. in greatest dimension. The specimens are submitted in toto in one cassette. B. Received in formalin, labeled "biopsy at 20 cm" are 4 mccord, irregular portions of soft tissue ranging from 0.2-0.4 cm. in greatest dimension. The specimens are submitted in toto in one cassette. C. Received in formalin, labeled "biopsy rectum" are 3 mccord, irregular portions of soft tissue ranging from 0.3-0.5 cm. in greatest dimension. The specimens are submitted in toto in one cassette. DL/07/31/2019 saudi07/31/2019
== END 2019-08-01 12:10 | disposition home or self-care (01) | DRG 249 ==
LOC: JER 21:25 → JERBED 07-26 01:44 → J8W 07-26 03:07
PROVIDERS: ADMIT Internal Medicine; ATTEND Internal Medicine
PROC: 0DBP8ZX Excision of Rectum, Via Natural or Artificial Opening Endoscopic, Diagnostic (ICD-10-PCS; 2019-07-30)
PROC: 0DBN8ZX Excision of Sigmoid Colon, Via Natural or Artificial Opening Endoscopic, Diagnostic (ICD-10-PCS; principal; 2019-07-30 12:15)
DX: K52.9 Noninfective gastroenteritis and colitis, unspecified (principal); R10.9 Unspecified abdominal pain; E03.9 Hypothyroidism, unspecified; E88.09 Other disorders of plasma-protein metabolism, not elsewhere classified; E11.65 Type 2 diabetes mellitus with hyperglycemia; E66.3 Overweight; E78.5 Hyperlipidemia, unspecified; K59.00 Constipation, unspecified; N39.0 Urinary tract infection, site not specified; N83.209 Unspecified ovarian cyst, unspecified side; E72.51 Non-ketotic hyperglycinemia; E46 Unspecified protein-calorie malnutrition; E87.6 Hypokalemia; K57.90 Diverticulosis of intestine, part unspecified, without perforation or abscess without bleeding; K64.8 Other hemorrhoids
CPT/HCPCS: 36415; 74176-TC; 76856-TC; 80048; 80053; 81003; 82010; 82272; 82803; 82962; 83036; 83605; 83690; 83735; 84100; 84703; 85025; 85027; 85610; 85730; 87040; 87077; 87086; 87324; 87449; 88305-TC; 90732; 99283-25; G0009; J0131; J7030